=== PATIENT | male | born 1980 | race Caucasian/White ===

== ENCOUNTER 2017-11-10 16:22 | Outpatient (CLI) | payer BC ==
[2017-11-10 16:38] LABS: #Basophils 0.1 thou/uL (0.0-0.2); #Eosinphils 0.4 thou/uL (0.0-0.7); #Lymphocytes 2.4 thou/uL (1.20-3.40); #Monocytes 0.6 thou/uL (0.11-0.59); #Neutrophils 4.4 thou/uL (1.40-6.50); %Eosinophils 4.7 % (0.0-10.0); %Lymphocytes 30.6 % (21.0-51.0); %Monocytes 7.5 % (0.0-10.0); %Neutrophils 56.3 % (42.0-75.0); Hemoglobin 15.1 g/dL (14.0-18.0); Mean Corpuscular HGB CONC 33.8 g/dL (32.0-36.0); Mean Corpuscular Hemoglobin 29.6 pg (27.0-31.0); Mean Corpuscular Volume 87.5 fL (78.0-98.0); Mean Platelet Volume 6.4 fL (7.4-10.4); Platelet Count 349 thou/uL (130-400); RBC Distribution Width 12.9 % (11.5-14.5); Red Blood Cell (RBC) Count 5.09 mill/uL (4.70-6.10); White Blood Cell (WBC) Count 7.8 thou/uL (4.8-10.8)
[2017-11-10 16:53] LABS: Anion Gap 13 mmol/L (10-20); BUN (Urea Nitrogen) 24 mg/dL (8.9-20.6); Calc. Creatinine Clearance 0 mL/min (70-130); Calcium 9.2 mg/dL (7.8-10.44); Carbon Dioxide 28 mmol/L (22-29); Chloride 103 mmol/L (98-107); Estimated GFR-MDRD 90; Glucose 83 mg/dL (70-105); Potassium 4.6 mmol/L (3.5-5.1); Sodium 139 mmol/L (136-145)
== END 2017-11-10 16:23 | disposition home or self-care (01) ==
LOC: LABBT 16:22
PROVIDERS: ATTEND Surgery
DX: Z01.812 Encounter for preprocedural laboratory examination (principal); K43.9 Ventral hernia without obstruction or gangrene
CPT/HCPCS: 80048; 85025

== ENCOUNTER 2017-11-14 08:09 | Outpatient (CLI) | payer BC, OTHER ==
--- NOTE | 2017-11-14 10:21 | RAD ---
SINGLE CONTRAST ESOPHAGRAM: INDICATION: Concern for gastric narrowing related to gastric band placement. The patient had gastric band placed in [place], [place], approximately 10 years ago. The patient is having severe dysphagia and reflux. Fluoroscopic time 1.9 minutes. Total exposure 12.961 mGy*^cm2. FINDINGS: A single contrast barium esophagram was performed. The esophagus is moderately dilated. The gastric band is placed within the left upper quadrant of the abdomen and is situated in a 2 o'clock to 8 o'c lock position as expected. There is severe narrowing of the proximal stomach at the level of the gas tric band. No appreciable barium contrast was seen to transit through the level of obstruction durin g the examination. There were numerous tertiary contractions of the mid to distal esophagus. IMPRESSION: 1. Severe extrinsic narrowing of the stomach at the level of the gastric band without appreciable tr ansit of contrast across the band site. 2. Moderate achalasia of the esophagus. POS: LEONARDA
== END 2017-11-14 08:10 | disposition home or self-care (01) ==
LOC: RAD 08:09
PROVIDERS: ATTEND Surgery
DX: K43.9 Ventral hernia without obstruction or gangrene (principal); K31.1 Adult hypertrophic pyloric stenosis; K22.0 Achalasia of cardia
CPT/HCPCS: 74220

== ENCOUNTER 2017-11-15 08:45 | Day surgery (SDC) | payer BC ==
[2017-11-10 16:32] VITALS: BMI 27.0
[2017-11-15] MEDS ORDERED: cefOXitin 2 GM VIAL ONE (09:02)
[2017-11-15] MEDS ORDERED: Sodium Chloride 0.9% 100 ML ONE (09:03)
[2017-11-15] MEDS ORDERED: Lidocaine 2% Jelly 5 ML TUBE ONE (09:21)
[2017-11-15] MEDS ORDERED: Midazolam HCl 2 mg/2 ml Vial ONE (09:21)
[2017-11-15] MEDS ORDERED: Fentanyl 250 MCG/5 ML VIAL ONE (09:21)
[2017-11-15] MEDS ORDERED: Bupivacaine/Epinephrine 0.25% 30 ML VIAL ONE (09:32)
[2017-11-15] MEDS ORDERED: Fentanyl 100 MCG/2 ML VIAL ONE (11:44)
[2017-11-15] MEDS ORDERED: Promethazine HCl 25 MG/ML VIAL ONE (11:57)
[2017-11-15] MEDS ORDERED: PROPOFOL 200 MG/20 ML VIAL ONE (12:32)
[2017-11-15] MEDS ORDERED: Dexamethasone 20 MG/5 ML VIAL ONE (12:32)
[2017-11-15] MEDS ORDERED: Succinylcholine Chloride 20 MG/ML 10 ml SYRINGE FS ONE (12:32)
[2017-11-15] MEDS ORDERED: Lidocaine 1% PF 5 ML VIAL ONE (12:32)
[2017-11-15] MEDS ORDERED: Glycopyrrolate 0.2 MG/ML 5 ML SYRINGE ONE (12:32)
[2017-11-15] MEDS ORDERED: Ondansetron HCl/PF 4 MG/2 ML Vial ONE (12:32)
[2017-11-15] MEDS ORDERED: HYDROcodone/Acetaminophen 5/325 mg Tablet ONE (13:35)
--- NOTE | 2017-11-16 11:14 | OP ---
DATE OF PROCEDURE: 11/15/2017 PREOPERATIVE DIAGNOSES: 1. Acquired gastric outlet obstruction and stenosis at previous laparoscopic gastric band. 2. Severe esophagitis. 3. Ventral incisional hernia. POSTOPERATIVE DIAGNOSES: 1. Acquired gastric outlet obstruction and stenosis at previous laparoscopic gastric band. 2. Severe esophagitis. 3. Ventral incisional hernia. PROCEDURE: 1. Removal of laparoscopic gastric band and subcutaneous port. 2. Laparoscopic incisional ventral hernia repair with mesh [address] SURGEON: Wilber Almonte M.D. ANESTHESIA: General. ESTIMATED BLOOD LOSS: Minimal. COMPLICATIONS: None. SPECIMEN: None. FINDINGS: Postop EGD shows no ongoing obstruction or evidence of erosion of lap band. No hiatal her dax. TECHNIQUE: The patient was taken to the operating room, laid supine on the operating room supine on the table. After general anesthetic was obtained, OG was used to decompress the stomach. The abdome n is prepped and draped in a sterile fashion. Left subcostal 5 mm trocar placed in usual fashion, pn eumoperitoneum was obtained in the area of previous lap band port incision, a 12-mm trocar was placed , two other 5-mm ports were placed. The buckle of the lap band is dissected away from the liver. Th e buckle was opened and the lap band removed. The tubing for the lap band is cut. The band is remov ed through the 12 mm trocar site. The port itself would be removed via an open incision after laparo scopy was done. EGD scope was passed into the esophagus into the stomach to the antrum without obstr uction, no evidence of erosion or mucosal defects. There is esophagitis present, but no hiatal herni a. EGD scope was used to decompress the stomach, it was pulled and removed. A #1 V-Loc suture is us ed to close the fascial defect in the area of the hernia primarily. [address] mesh brought i nto the sterile field, tacked to the fascia circumferentially around this area of fascial closure. V icryl sutures and the GraNee needle was used to pass through the skin, muscle mesh and back up to hol d the mesh in place. These are placed in all 4 quadrants. All port sites are infiltrated using loca l anesthetic. All ports are removed under camera visualization. Pneumoperitoneum was let down. The 12-mm trocar site was closed using GraNee 0 Vicryl tie. The lap band port is removed. All incision s were irrigated and closed using 4-0 Monocryl and Dermabond. The patient en route to recovery in st able condition. All instrument counts, needle counts, lap counts were correct.
== END 2017-11-15 14:01 | disposition home or self-care (01) ==
LOC: SDC 08:45
PROVIDERS: ATTEND Surgery
PROC: 0DP64CZ Removal of Extraluminal Device from Stomach, Percutaneous Endoscopic Approach (ICD-10-PCS; principal; 2017-11-15)
PROC: 0WUF4JZ Supplement Abdominal Wall with Synthetic Substitute, Percutaneous Endoscopic Approach (ICD-10-PCS; principal; 2017-11-15)
DX: K43.2 Incisional hernia without obstruction or gangrene (principal); T85.598A Other mechanical complication of other gastrointestinal prosthetic devices, implants and grafts, initial encounter; K20.9 Esophagitis, unspecified; K31.1 Adult hypertrophic pyloric stenosis
CPT/HCPCS: 96374; 96375; C1781; J0694; J1100; J2001; J2250; J2405; J2550; J2704; J3010; J7050

== ENCOUNTER 2018-08-31 12:41 | Emergency (ER) | payer BC, OTHER ==
[2018-08-31] MEDS ORDERED: Ibuprofen 200 MG TAB ONE (13:37)
[2018-08-31] MEDS ORDERED: methylPREDNISolone Sod Succ/PF 125 MG/2 ML VIAL ONE (14:30)
== END 2018-08-31 14:39 | disposition home or self-care (01) ==
LOC: ERS 12:41
DX: J30.2 Other seasonal allergic rhinitis (principal); F17.210 Nicotine dependence, cigarettes, uncomplicated
CPT/HCPCS: 87804; 96372; J2930

== ENCOUNTER 2018-11-20 23:40 | Inpatient (IN) | payer OTHER ==
[2018-11-21 00:59] LABS: #Eosinphils 0.2 thou/uL (0.0-0.7); #Lymphocytes 1.7 thou/uL (1.20-3.40); #Monocytes 1.6 thou/uL (0.11-0.59); #Neutrophils 13.8 thou/uL (1.40-6.50); %Basophils 0.2 % (0.0-1.0); %Eosinophils 1.2 % (0.0-10.0); %Lymphocytes 9.6 % (21.0-51.0); %Monocytes 9.3 % (0.0-10.0); %Neutrophils 79.7 % (42.0-75.0); Hemoglobin 14.4 g/dL (14.0-18.0); Mean Corpuscular HGB CONC 34.2 g/dL (32.0-36.0); Mean Corpuscular Hemoglobin 28.8 pg (27.0-31.0); Mean Corpuscular Volume 84.4 fL (78.0-98.0); Mean Platelet Volume 7.7 fL (7.4-10.4); Platelet Count 308 thou/uL (130-400); RBC Distribution Width 13.1 % (11.5-14.5); White Blood Cell (WBC) Count 17.3 thou/uL (4.8-10.8)
[2018-11-21 01:26] LABS: ALT (SGPT) 737 U/L (8-55); AST (SGOT) 1858 U/L (5-34); Albumin 3.6 g/dL (3.5-5.0); Alkaline Phosphatase 82 U/L (40-150); Anion Gap 23 mmol/L (10-20); BUN (Urea Nitrogen) 82 mg/dL (8.9-20.6); Bilirubin, Total 0.8 mg/dL (0.2-1.2); Calc. Creatinine Clearance 0 mL/min (70-130); Calcium 7.8 mg/dL (7.8-10.44); Carbon Dioxide 17 mmol/L (22-29); Chloride 95 mmol/L (98-107); Estimated GFR-MDRD 9; Globulin 3.6 g/dL (2.4-3.5); Glucose 98 mg/dL (70-105); Potassium 4.4 mmol/L (3.5-5.1); Protein, Total 7.2 g/dL (6.0-8.3); Sodium 131 mmol/L (136-145)
[2018-11-21 01:55] LABS: Magnesium 2.8 mg/dL (1.6-2.6)
[2018-11-21 01:56] LABS: CK (CPK) Greater than 40000 U/L (30-200)
[2018-11-21 02:06] LABS: CKMB 563.5 ng/mL (0-6.6)
[2018-11-21] MEDS ORDERED: Sodium Chloride 0.9% 1,000 ML IV SCH ×3 (04:00→21:45)
--- NOTE | 2018-11-21 04:02 | PDOC.FPRHP ---
- History of Present Illness Chief Complaint: Dehydration, weakness History of Present Illness: Mr. Molina is a pleasant 38yo CM with h/o IV meth use who presents with 2 day history of muscle cramps, weakness, and lower back pain. He has used meth since age 20, with IV use for the past 3 years. He recently tried to quit and had been sober for 7 days prior to using IV meth 2 days ago. He then began to experience mild, subjective sxs of dehydration and full body weakness. Then, Tuesday morning, he worked outside for several hours in the morning and later began to experience increased full body muscle cramps and increased weakness prompting his presentation to the ED. He endorses decreased urine output, last urination some time Tuesday morning; decreased PO intake over past few days, lower back pain described as a bilateral pressure and weakness. Pain and cramping is much worse with movement and relieved with rest, rated 8/10. He also has taken multiple Motrin, 2 BC powders, and 8 baby aspirin over the past 2 days with minimal relief. He denies any CP, SOB, or abdominal pain. ED Course: In the ED, CPK was elevated to > 40,000 and AST/ALT 1858/737. Troponin 0.17. Cr 7.27. EKG was normal sinus rhythm. He was stable and given 2.5L NS bolus. He was then admitted for further management of TAYA secondary to rhabdo. - Allergies/Adverse Reactions Allergies Allergy/AdvReac Type Severity Reaction Status Date / Time No Known Allergies Allergy Unverified 11/10/17 16:32 - Home Medications Medication Instructions Recorded Confirmed Type Pantoprazole [Protonix] 40 mg PO DAILY 11/21/18 11/21/18 History - History PMHx: GERD PSHx: Gastric lap-band 10 yrs ago, removed in 2018 FHx: Father with unspecific "liver problems" and "hepatitis carrier." Mother with h/o of lower extremity edema. No known h/o ACS, CAD, DM, or HTN. Social: Meth use for past 18yrs, IV use in past 3 years. Last used 11/19 Smokes 1/3ppd for past 18yrs. No EtOH use. 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 No h/o STD's including HIV or Hep C. - Review of Systems General: reports: fatigue Eyes: denies: eye pain, vision changes ENT: denies: nasal congestion, rhinorrhea Respiratory: denies: cough, congestion, shortness of breath Cardiovascular: denies: chest pain, palpitation, edema Gastrointestinal: reports: diarrhea (isolated episode over past 2 days). denies : nausea, vomiting, abdominal pain Genitourinary: reports: other (decreased urine output). denies: dysuria Skin: reports: rashes (lower extremity rash) Musculoskeletal: reports: pain, tenderness. denies: swelling Neurological: reports: weakness. denies: numbness, syncope - Vital signs BP: 135/83 HR: 105 RR: 18 Tmax: 98.6 Pox: 99% on RA Wt: 127kg - Physical Exam Constitutional: NAD, awake, alert and oriented, well developed, other (Obese) HEENT: normocephalic and atraumatic, PERRLA, EOMI, grossly normal vision, grossly normal hearing Heart: RRR, normal S1/S2, no murmurs/rubs/gallops, pulses present Lungs: CTAB Abdomen: soft, non-tender, bowel sounds present Musculoskeletal: normal structure, normal tone, other (Muscles diffusely TTP, markedly on lower ext. Pain with Flexion of hip and plantar flexion of foot.) Neurological: no focal deficit Skin: other (Bilateral, maculopapular rash on feet.) Psychiatric: normal mood and affect FMR H&P: Results - Labs Result Diagrams: 11/21/18 00:51 11/21/18 00:51 Lab results: WBC 17.3 thou/uL (4.8-10.8) H 11/21/18 00:51 Hgb 14.4 g/dL (14.0-18.0) 11/21/18 00:51 Hct 42.2 % (42.0-52.0) 11/21/18 00:51 MCV 84.4 fL (78.0-98.0) 11/21/18 00:51 Plt Count 308 thou/uL (130-400) 11/21/18 00:51 Neutrophils % 79.7 % (42.0-75.0) H 11/21/18 00:51 Sodium 131 mmol/L (136-145) L 11/21/18 00:51 Potassium 4.4 mmol/L (3.5-5.1) 11/21/18 00:51 Chloride 95 mmol/L (98-107) L 11/21/18 00:51 Carbon Dioxide 17 mmol/L (22-29) L 11/21/18 00:51 BUN 82 mg/dL (8.9-20.6) H 11/21/18 00:51 Creatinine 7.27 mg/dL (0.7-1.3) H 11/21/18 00:51 Glucose 98 mg/dL (70-105) 11/21/18 00:51 Calcium 7.8 mg/dL (7.8-10.44) 11/21/18 00:51 Total Bilirubin 0.8 mg/dL (0.2-1.2) 11/21/18 00:51 AST 1858 U/L (5-34) H 11/21/18 00:51 ALT 737 U/L (8-55) H 11/21/18 00:51 Alkaline Phosphatase 82 U/L (40-150) 11/21/18 00:51 Creatine Kinase Greater than 16720 U/L (30-200) H 11/21/18 00:51 CK-MB (CK-2) 563.5 ng/mL (0-6.6) H* 11/21/18 00:51 B-Natriuretic Peptide 18.8 pg/mL (0-100) 11/21/18 00:51 Serum Total Protein 7.2 g/dL (6.0-8.3) 11/21/18 00:51 Albumin 3.6 g/dL (3.5-5.0) 11/21/18 00:51 Lipase 38 U/L (8-78) 11/21/18 00:51 - EKG Interpretation EKG: NSR. Rate 90. Normal axis. No ST/ T wave changes. Good R wave progression. FMR H&P: A/P - Problem List (1) TAYA (acute kidney injury) Current Visit: Yes Status: Acute Code(s): N17.9 - ACUTE KIDNEY FAILURE, UNSPECIFIED (2) Rhabdomyolysis Current Visit: Yes Status: Acute Code(s): M62.82 - RHABDOMYOLYSIS (3) Transaminitis Current Visit: Yes Status: Acute Code(s): R74.0 - NONSPEC ELEV OF LEVELS OF TRANSAMNS & LACTIC ACID DEHYDRGNSE (4) GERD (gastroesophageal reflux disease) Current Visit: Yes Status: Chronic Code(s): K21.9 - GASTRO-ESOPHAGEAL REFLUX DISEASE WITHOUT ESOPHAGITIS (5) Methamphetamine abuse Current Visit: Yes Status: Chronic Code(s): F15.10 - OTHER STIMULANT ABUSE, UNCOMPLICATED (6) Nicotine abuse Current Visit: Yes Status: Chronic Code(s): Z72.0 - TOBACCO USE (7) Obesity Current Visit: Yes Status: Chronic Code(s): E66.9 - OBESITY, UNSPECIFIED - Plan 38yo CM with h/o of methamphetamine abuse presents with TAYA secondary to rhabdomyolysis 1. TAYA secondary to Rhabdomyolysis - likely 2/2 decreased PO intake concurrent with methamphetamine abuse and increased exertion - Cr 7.27, CPK >40,000 - s/p 2.5L NS bolus in ED, will hydrate with NS @200ml/hr - Repeat CPK and CMP now and then q3h. Potassium currently 4.4, will monitor closely. 2. Transaminitis - AST/ALT 1858/737. Bili 0.8 - Likely 2/2 acute rhabdo - Recheck CMP now and q3h to trend. - If levels do not correct with hydration, will consider Hep C, HIV, RPR for further workup. 3. Elevated Troponin - Trop 0.170. EKG Sinus tachy without acute changes. - No CP, SOB, or acs sxs. Likely 2/2 rhabdo. 3. GERD - chronic and stable. Will continue home Protonix. 4. 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 Nicotine abuse - will provide nicotine patch - counsellors on cessation VTE: SCDs Diet: Regular Code status: Full Disposition/LOS: Pending clinical improvement as well as downtrend of CPK and return to baseline renal function. Anticipated hospitalization course >48hours. FMR H&P: Upper Level - Pertinent history 38 yo M w/hx of methamphetamine use presents to the ER with complaint of muscle cramps. He states that he had been off of methamphetamine for a period of time and relapsed starting 11/19. Additionally he had been working outside in the heat for the 48 hours prior to admission. He noticed that he had increasing thirst starting 11/20 and attempted to orally hydrate. On the night of 11/20 he had severe cramping and could not walk dt pain and decided to seek care in the ED. He has had no urine output since Tuesday that he can think of. Currently complains of muscle pain and cramping. Denies CP, SOB, palpitations. In ED he was found to have a CK >06736, AST 1858, ALT 737, and Cr of 7.27. He was bolused 3L NS and started on NS at 200mL/hr ROS General denies fever, chills HEENT complains of headache. Denies changes in vision CV denies palpitation or CP Resp denies cough or SOB GI denies n/v/d/g complains of decreased UOP MSK complains of muscle cramps See manager intern note for full ROS - Pertinent findings Significant labs as above. See manager intern note for all labs, vitals, and complete PE PE General A&O x4, no acute distress HEENT NCAT CV RRR, no murmur Resp CTA Abd non tender, no distension, normal BS Extremities all muscles TTP, normal ROM Neuro no focal deficits, normal sensation and strength - Plan Date/Time: 11/21/18 1445 IThony DO, have evaluated this patient and agree with findings/plan as outlined by manager intern resident. Pertinent changes/additions are listed here. This is a 38 yo M here TAYA secondary to rhabdomyolysis 1.Rhabdomyolysis -Continue IVF -Strict I/O -Monitor CMP. No current electrolyte abnormalities, however there are significant LFT elevation. -Rhabdo explains all lab abnormalities at this time, will consider further work up if labs do not begin to normalize with IVF. 2. Amphetamine abuse -likely source of rhabdo in combination with poor oral hydration and outside work. -UDS pending -counsellors on cessation. 3. TAYA -secondary to severe dehydration, continue to monitor and IVF as above -no indication for HD at this time. Will consult nephro if renal function does not improve on repeat labs 4. Elevated LFT -monitor as above. Most likely related to rhabdo
[2018-11-21 05:00] LABS: ALT (SGPT) 635 U/L (8-55); AST (SGOT) 1539 U/L (5-34); Albumin 3.2 g/dL (3.5-5.0); Alkaline Phosphatase 72 U/L (40-150); Anion Gap 27 mmol/L (10-20); BUN (Urea Nitrogen) 79 mg/dL (8.9-20.6); Bilirubin, Total 0.7 mg/dL (0.2-1.2); Calc. Creatinine Clearance 0 mL/min (70-130); Carbon Dioxide 11 mmol/L (22-29); Chloride 100 mmol/L (98-107); Estimated GFR-MDRD 9; Globulin 3.1 g/dL (2.4-3.5); Glucose 82 mg/dL (70-105); Protein, Total 6.3 g/dL (6.0-8.3); Sodium 133 mmol/L (136-145)
[2018-11-21 05:52] LABS: CK (CPK) Greater than 40000 U/L (30-200)
[2018-11-21 08:19] LABS: ALT (SGPT) 597 U/L (8-55); AST (SGOT) 1359 U/L (5-34); Albumin 3.1 g/dL (3.5-5.0); Alkaline Phosphatase 75 U/L (40-150); Anion Gap 21 mmol/L (10-20); BUN (Urea Nitrogen) 82 mg/dL (8.9-20.6); Bilirubin, Total 0.6 mg/dL (0.2-1.2); Calc. Creatinine Clearance 29 mL/min (70-130); Calcium 6.6 mg/dL (7.8-10.44); Carbon Dioxide 16 mmol/L (22-29); Chloride 99 mmol/L (98-107); Estimated GFR-MDRD 8; Glucose 85 mg/dL (70-105); Potassium 4.2 mmol/L (3.5-5.1); Protein, Total 6.1 g/dL (6.0-8.3); Sodium 132 mmol/L (136-145)
[2018-11-21 08:26] LABS: Actual Bicarbonate (HCO3a) 16.2 mEq/L (22-28); Base Excess (BEa) -8.3 mEq/L (-2.0 to +3.0); CO2 Tension 30.8 mmHg (35.0-45.0); Calcium, Ionized 0.88 mmol/L (1.12-1.30); Hemoglobin (Hb) 13.5 g/dL (14.0-18.0); O2 Tension (PaO2) 104.7 mmHg (80.0-100.0); Potassium - ABG Lab 4.26 mmol/L (3.70-5.30); pH, Arterial 7.34 (7.35-7.45)
[2018-11-21 08:28] LABS: Puncture Site RRA
[2018-11-21] MEDS: Nicotine 14 MG PATCH TD SCH ×2 (08:40→09:55)
[2018-11-21 09:13] LABS: CK (CPK) Greater than 40000 U/L (30-200)
[2018-11-21] MEDS ORDERED: Lidocaine 1% PF 5 ML VIAL ONE (10:15)
[2018-11-21] MEDS ORDERED: PROPOFOL 200 MG/20 ML VIAL ONE (10:15)
[2018-11-21] MEDS ORDERED: Ondansetron PF 4 MG/2 ML Vial ONE (10:15)
[2018-11-21] MEDS ORDERED: Dexamethasone 20 MG/5 ML VIAL ONE (10:15)
[2018-11-21 10:28] LABS: HBSAg Index 0.27 S/CO (0-0.99); Hep B Core Total Ab Non-Reactive (NonReactive); Hep B Core Total Index 0.12 S/CO (0-0.79); Hep B Surf AB Non-Reactive (NonReactive); Hep B Surf Ag Non-Reactive S/CO (NonReactive); Hep C IgG Ab Non-Reactive (NonReactive)
[2018-11-21 10:29] LABS: Bilirubin Negative (Negative); Blood, Urine Large (Negative); Clarity CLOUDY (Clear); Glucose, Urine (Dipstick) 250 mg/dL (Negative); Leukocyte Negative (Negative); Nitrite Negative (Negative); Protein, Urine (Dipstick) 300 mg/dL (Neg-Trace); Urobilinogen 0.2 mg/dL (0.2-1.0)
[2018-11-21 10:38] LABS: Amphetamine Detected (NotDetected); Barbiturates Screen Not Detected (NotDetected); Benzodiazepine Screen Not Detected (NotDetected); Cocaine Metabolite Screen Not Detected (NotDetected); Medtox Control Line Valid? VALID (VALID); Medtox Reader # READER 1; Methadone Not Detected (NotDetected); Methamphetamine Detected (NotDetected); Opiate Screen Detected (NotDetected); Oxycodone Screen Not Detected (NotDetected); Phencyclidine (PCP) Not Detected (NotDetected); THC/Cannabinoid Screen Not Detected (NotDetected); Tricyclic Screen Not Detected (NotDetected)
[2018-11-21 10:47] LABS: Bacteria/HPF None Seen HPF (None Seen); Hyaline Casts/LPF NONE SEEN LPF (0-3 Hyaline); RBC/HPF 0-3 HPF (0-3); Squamous Epithelial 0-3 HPF (0-3); WBC/HPF 0-3 HPF (0-3)
[2018-11-21] MEDS ORDERED: Heparin 10,000 UNITS/ 10 ML VIAL ONE ×2 (11:11)
--- NOTE | 2018-11-21 11:25 | CON ---
DATE OF CONSULTATION: REASON FOR CONSULTATION: Anuria and metabolic acidosis. HISTORY OF PRESENT ILLNESS: This is a very pleasant 38-year-old gentleman, who presented to the hospital early this morning with a bicarbonate of 11, for dehydration and weakness. The patient had a creatinine of 7.6. The patient has not been aware of any kidney disease. Last creatinine in October of 2017 was normal. The patient denies any nausea, vomiting, or chest pain at this time. Did make some urine today. His CPK was more than 40,000. PAST MEDICAL HISTORY: Significant of GERD, history of Lap-Band surgery. SOCIAL HISTORY: No alcohol. History of methamphetamine use and smoking and IV drug use. FAMILY HISTORY: Negative for ESRD. ALLERGIES: REVIEWED. HOME MEDICATIONS: List reviewed. REVIEW OF SYSTEMS: A 15-point review of system was performed, negative except for positives noted above. GENERAL: HEAD: NECK: No swelling or lumps. NOSE: No epistaxis or discharge. EYES: No diplopia or pain. 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 NEUROPSYCHIATIC SYSTEMS: No suicidal ideation. No ideation. SKIN: Denies any rash or ulcer. CONSTITUTIONAL: No fever or chills. PHYSICAL EXAMINATION: GENERAL: The patient is awake and alert. VITAL SIGN: Afebrile. Pulse 75, breathing 16, blood pressure 117/66. GENERAL APPEARANCE AND MENTAL STATUS: Fair. HEAD/NECK: Normocephalic. Atraumatic. EYES: EOMI. No deformity. EARS: Clear. No ulcers. NOSE: Intact. No lesions. MOUTH: Clear. No discharge. THROAT: Clear. No exudate. LUNGS: Clear. No crackles. CARDIAC: S1, S2. No rub. ABDOMEN: Benign. Bowel sounds positive. GENITALIA/RECTUM: Ontiveros absent. BACK/EXTREMITIES: Edema 0+. NEUROLOGICAL: Alert and motor intact. SKIN: LYMPHATICS: LABORATORY DATA: Reviewed. ASSESSMENT AND PLAN: 1. Acute kidney injury with chronic kidney disease. Plan dialysis. 2. Proteinuria. We will measure. 3. Metabolic acidosis. Plan dialysis. 4. Narcotic drug use. Overall prognosis is poor. The patient was consented for dialysis. Job ID: [id number]
[2018-11-21] MEDS ORDERED: CEFAZOLIN 2 GM in Premix Bag 1 BAG IVPB SCH (12:45)
--- NOTE | 2018-11-21 13:08 | HP ---
HISTORY OF PRESENT ILLNESS: Tommy Molina is a 38-year-old male patient who has a meth addiction relapse, presents with rhabdomyolysis and acute renal failure. I placed a temporary dialysis catheter in his right groin Trialysis. It seemed to go in well; however, will not work well during dialysis. I have been called by dialysis stating they tried everything to get it to work. Plan at this time is to place a cuffed tunneled dialysis catheter. His creatinine is 7, GFR 8. There are no previous labs to compare to. Drug screen is positive for amphetamines, methamphetamines. ALLERGIES: NONE. MEDICATIONS: Protonix. This patient had been meth free for 7 days, but had a relapse two days ago. SOCIAL HISTORY: Tobacco, 1/3 pack per day. Alcohol, none. 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 Meth use for the past 18 years. IV in the last 3 years. PHYSICAL EXAMINATION: VITAL SIGNS: 6 feet 1, 340 pounds, 44 BMI, 98.2, 82, 142/79. HEAD, EARS, EYES, NOSE AND THROAT: Unremarkable. LUNGS: Clear to auscultation. CARDIAC: Regular rate and rhythm. ABDOMEN: Soft, obese. EXTREMITIES: Unremarkable. ASSESSMENT/PLAN: Rhabdomyolysis, acute renal failure. PLAN: Placement of cuffed tunneled dialysis catheter due to his groin catheter not functioning adequately for dialysis. He understands risks and benefits and consents. Job ID: [id number]
--- NOTE | 2018-11-21 14:10 | OP ---
DATE OF PROCEDURE: 11/21/2018 PREOPERATIVE DIAGNOSES: Rhabdomyolysis, recurrent methamphetamine use, history of addiction, acute renal failure. POSTOPERATIVE DIAGNOSES: Rhabdomyolysis, recurrent methamphetamine use, history of addiction, acute renal failure. PROCEDURE PERFORMED: Right groin Trialysis catheter. ANESTHESIA: 1% Xylocaine. DESCRIPTION OF PROCEDURE: With the patient's at bedside, right groin was prepared with ChloraPrep and draped in routine fashion. Hair clip had been requested, but not delivered. Local anesthetic with 1% Xylocaine was infiltrated in the skin and subcutaneous tissue about the operative site and trocar catheter was cannulated in the femoral vein, J-wire threaded, trocar catheter removed. Skin site enlarged sharply. Medium sized dilator was placed over the J-wire into the femoral vein and removed and distal port of the Trialysis catheter placed over the J-wire into the femoral vein and J-wire removed, catheter secured with 2 interrupted sutures of 3-0 nylon. Sterile dressing applied. Each port aspirated with blood, flushed with heparinized saline solution. The patient tolerated the procedure well. Job ID: [id number]
[2018-11-21] MEDS: Heparin 5,000 UNITS/ML VIAL SC SCH ×2 (15:36→20:11)
[2018-11-21] MEDS ORDERED: Bupivacaine HCl 0.5%/Epinephrine 1:200,000/PF 30 ml Vial ONE (16:24)
[2018-11-21] MEDS ORDERED: Heparin 10,000 UNITS/1 ML VIAL ONE (16:24)
[2018-11-21] MEDS ORDERED: Lidocaine 2% PF 5 ML VIAL ONE (16:24)
[2018-11-21] MEDS ORDERED: Fentanyl 100 MCG/2 ML VIAL ONE (16:31)
[2018-11-21] MEDS ORDERED: Promethazine HCl 25 MG/ML VIAL SLOW IVP PRN (17:45)
[2018-11-21] MEDS ORDERED: Promethazine HCl 25 MG/ML VIAL IM PRN (17:45)
[2018-11-21] MEDS ORDERED: Ondansetron HCl/PF 4 MG/2 ML Vial IVP PRN (17:45)
--- NOTE | 2018-11-21 18:01 | RAD ---
EXAM: Single view of the chest HISTORY: Central line placement COMPARISON: None FINDINGS: Single view of the chest shows a normal sized cardiomediastinal silhouette. A right IJ lenka lysis catheter seen with its tip at the atriocaval junction. No pneumothorax is seen. There is no evidence of consolidation, mass, or pleural effusion. The bones are unremarkable. IMPRESSION: Status post dialysis catheter placement without evidence of complication.
[2018-11-21 19:17] LABS: ALT (SGPT) 552 U/L (8-55); AST (SGOT) 1057 U/L (5-34); Albumin 3.1 g/dL (3.5-5.0); Alkaline Phosphatase 75 U/L (40-150); Anion Gap 19 mmol/L (10-20); BUN (Urea Nitrogen) 77 mg/dL (8.9-20.6); Bilirubin, Total 0.6 mg/dL (0.2-1.2); Calc. Creatinine Clearance 28 mL/min (70-130); Calcium 6.5 mg/dL (7.8-10.44); Carbon Dioxide 19 mmol/L (22-29); Chloride 100 mmol/L (98-107); Estimated GFR-MDRD 8; Glucose 87 mg/dL (70-105); Potassium 4.9 mmol/L (3.5-5.1); Protein, Total 6.1 g/dL (6.0-8.3); Sodium 133 mmol/L (136-145)
[2018-11-21 19:50] LABS: CK (CPK) Greater than 40000 U/L (30-200)
--- NOTE | 2018-11-22 00:50 | OP ---
DATE OF PROCEDURE: 11/21/2018 PREOPERATIVE DIAGNOSES: Acute renal failure. Methamphetamine intravenous use, nonfunctioning right groin Trialysis catheter, rhabdomyolysis. POSTOPERATIVE DIAGNOSES: Acute renal failure. Methamphetamine intravenous use, nonfunctioning right groin Trialysis catheter, rhabdomyolysis. PROCEDURE PERFORMED: Right IJ cuffed tunneled hemodialysis catheter, ultrasound fluoroscopy used. ANESTHESIA: General LMA, local 0.5% Marcaine with epinephrine 30 mL mixed with 2% Xylocaine 10 mL. DESCRIPTION OF PROCEDURE: The patient was taken to the operating room where under general LMA anesthesia, neck and chest clipped of hair, prepared with ChloraPrep and draped in routine fashion. Trocar cannulated the right internal jugular vein on ultrasound visualization and J-wire threaded, trocar catheter removed. Skin was incised and enlarged sharply. Stab incision was made over the right chest. Using the tunneling device, pre-curved [employer] cuffed-tunneled hemodialysis catheter tunneled between 2 incisions, placed the fabric cuff beneath the skin exit site and catheter was secured with 2 interrupted sutures of 3-0 nylon. Sterile dressing applied. Small and medium sized dilators placed over the J-wire into the internal jugular vein and removed. Dilator and Peel-Away sheath were placed over the J-wire into the superior vena cava. Dilator and J-wire were removed. Catheter was placed with the Peel-Away sheath. Peel-Away sheath was removed. Platysma was approximated with 4-0 Monocryl, skin with subdermal 4-0 Monocryl and [place] glue applied. Each port aspirated blood and flushed with saline solution and heparinized saline solution with 1000 units heparin per mL indicating volume of the port. Job ID: [id number]
[2018-11-22 06:12] LABS: ALT (SGPT) 511 U/L (8-55); AST (SGOT) 835 U/L (5-34); Albumin 3.3 g/dL (3.5-5.0); Alkaline Phosphatase 76 U/L (40-150); Anion Gap 18 mmol/L (10-20); BUN (Urea Nitrogen) 79 mg/dL (8.9-20.6); Bilirubin, Total 0.4 mg/dL (0.2-1.2); Calc. Creatinine Clearance 28 mL/min (70-130); Calcium 7.1 mg/dL (7.8-10.44); Carbon Dioxide 19 mmol/L (22-29); Chloride 102 mmol/L (98-107); Estimated GFR-MDRD 8; Globulin 3.4 g/dL (2.4-3.5); Glucose 101 mg/dL (70-105); Potassium 5.2 mmol/L (3.5-5.1); Protein, Total 6.7 g/dL (6.0-8.3); Sodium 134 mmol/L (136-145)
[2018-11-22 06:40] LABS: CK (CPK) Greater than 40000 U/L (30-200)
--- NOTE | 2018-11-22 06:53 | PDOC.FM ---
- Subjective Subjective: Patient was dialyzed overnight but renal function continues to decline. Otherwise, no acute events. Reports improvement in his muscle cramping this AM and did urinate overnight. - Objective MAR Reviewed: Yes Vital Signs & Weight: Vital Signs (12 hours) Temp Pulse Resp BP Pulse Ox 11/22/18 04:00 97.9 F 84 20 134/71 97 11/21/18 23:20 95 22 H 143/77 H 97 11/21/18 20:06 97.8 F 86 19 130/76 98 Weight Weight 154.1 kg I&O: 11/20/18 11/21/18 11/22/18 06:59 06:59 06:59 Intake Total 2340 Output Total 1575 Balance 765 Result Diagrams: 11/21/18 00:51 11/22/18 05:08 Phys Exam - Physical Examination Constitutional: NAD Neck: supple, full ROM Respiratory: no wheezing, no rales, no rhonchi, clear to auscultation bilateral Cardiovascular: RRR, no significant murmur Gastrointestinal: soft, non-tender, positive bowel sounds Musculoskeletal: no edema, pulses present Neurological: non-focal, moves all 4 limbs Psychiatric: normal affect, A&O x 3 Skin: no rash, normal turgor Dx/Plan (1) Acute renal failure Status: Acute (2) Rhabdomyolysis Code(s): M62.82 - RHABDOMYOLYSIS Status: Acute (3) Transaminitis Code(s): R74.0 - NONSPEC ELEV OF LEVELS OF TRANSAMNS & LACTIC ACID DEHYDRGNSE Status: Acute (4) GERD (gastroesophageal reflux disease) Code(s): K21.9 - GASTRO-ESOPHAGEAL REFLUX DISEASE WITHOUT ESOPHAGITIS Status: Chronic (5) Methamphetamine abuse Code(s): F15.10 - OTHER STIMULANT ABUSE, UNCOMPLICATED Status: Chronic (6) Nicotine abuse Code(s): Z72.0 - TOBACCO USE Status: Chronic (7) Obesity Code(s): E66.9 - OBESITY, UNSPECIFIED Status: Chronic - Plan Plan: 38YOM with a h/o of methamphetamine abuse who presented in ARF 2/2 rhabdomyolysis from methamphetamine use. ARF 2/2 Rhabdomyolysis - Likely 2/2 decreased PO intake with methamphetamine abuse. - s/p urgent HD yesterday and ~4-5L of IVFs but Cr 7.8 & CPK >40,000 this AM. However, did have ~1L UO in the last 24 hours. - Will continue hydration with NS @ 250ml/hr but anticipate patient will need HD again today. - Will continue to trend CPK and CMP QD. Hyperkalemia - K up to 5.2 this AM. Patient is asymptomatic but peaked T waves noted on tele strip this AM. Stat EKG ordered and will give PPx calcium gluconate and kayexalate as well as Duonebs prior to dialysis. Transaminitis - AST/ALT continue to downtrend. - Likely 2/2 rhabdo - Will continue to trend with QD CMPs. Elevated Troponin - Initial trop 0.170 but downtrended to 0.125. Likely 2/2 rhabdo. GERD - Chronic and stable. Will continue home Protonix. Methamphetamine abuse - UDS + for meth and opiates. - Will herb counselor on cessation. Nicotine abuse - Patient refused nicotine patch. - Will herb counselor on cessation. VTE: heparin Diet: Renal high protein IVFs: NS @ 250mL/hr Abx: none Code status: Full Addendum - Attending - Attending Attestation Date/Time: 11/22/18 1241 I personally evaluated the patient and discussed the management with Dr. Berkowitz. I agree with the History, Examination, Assessment and Plan documented above with any addition or exceptions noted below. Worsening creatinine in the setting of acute renal failure 2/2 rhabdomyolysis 2/ 2 meth use. Continue fluids and dialysis. 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 Trend CK and creatinine
[2018-11-22] MEDS ORDERED: Calcium Gluc 4.6 MEQ/10 ML (100 MG/ML) SLOW IVP SCH (08:17)
[2018-11-22] MEDS ORDERED: Albuterol Sulfate 1.25 MG/3 ML NEB NEB SCH (08:21)
[2018-11-22] MEDS: Heparin 5,000 UNITS/ML VIAL SC SCH ×3 (10:14→20:32)
[2018-11-22] MEDS: Sodium Chloride 0.9% 1,000 ML IV SCH ×4 (10:15→20:31)
[2018-11-22] MEDS ORDERED: Heparin 10,000 UNITS/ 10 ML VIAL ONE (11:11)
--- NOTE | 2018-11-22 11:30 | PRG ---
DATE OF SERVICE: 11/22/2018 SUBJECTIVE: This is a 38-year-old gentleman, being seen for end-stage renal disease. The patient denied nausea, vomiting, or chest pain. OBJECTIVE: CONSTITUTIONAL: The patient is awake and alert. VITAL SIGNS: Afebrile. Pulse 80, breathing 16, blood pressure 134/83. GENERAL APPEARANCE AND MENTAL STATUS: Fair. HEAD/NECK: Normocephalic. Atraumatic. EYES: EOMI. No deformity. EARS: Clear. No ulcers. NOSE: Intact. No lesions. MOUTH: Clear. No discharge. THROAT: Clear. No exudate. LUNGS: Clear. No crackles. CARDIAC: S1, S2. No rub. ABDOMEN: Benign. Bowel sounds positive. GENITALIA/RECTUM: Ontiveros absent. BACK/EXTREMITIES: Edema 0+. NEUROLOGICAL: Alert and motor intact. SKIN: LYMPHATICS: LABORATORY DATA: Reviewed. ASSESSMENT AND PLAN: 1. Stage 6 chronic kidney disease, plan dialysis. 2. Hyperkalemia, plan dialysis. 3. Anemia, stable. 4. Medication based on GFR, appropriate. Job ID: [id number]
[2018-11-22 16:19] LABS: ALT (SGPT) 407 U/L (8-55); AST (SGOT) 693 U/L (5-34); Albumin 3.3 g/dL (3.5-5.0); Alkaline Phosphatase 70 U/L (40-150); Anion Gap 16 mmol/L (10-20); BUN (Urea Nitrogen) 62 mg/dL (8.9-20.6); Bilirubin, Total 0.3 mg/dL (0.2-1.2); Calc. Creatinine Clearance 35 mL/min (70-130); Calcium 7.5 mg/dL (7.8-10.44); Carbon Dioxide 24 mmol/L (22-29); Chloride 101 mmol/L (98-107); Estimated GFR-MDRD 10; Globulin 3.2 g/dL (2.4-3.5); Glucose 103 mg/dL (70-105); Potassium 3.9 mmol/L (3.5-5.1); Protein, Total 6.5 g/dL (6.0-8.3); Sodium 137 mmol/L (136-145)
[2018-11-22 16:45] LABS: CK (CPK) 37719 U/L (30-200)
--- NOTE | 2018-11-22 23:58 | ULT ---
US Renal Bilateral STANDARD: 11/22/2018 10:09 AM CLINICAL HISTORY: Acute kidney injury and right flank pain. STUDY: Renal ultrasound COMPARISON: None. FINDINGS: Right kidney: Echogenicity: Normal. Masses/cysts: None. Hydronephrosis: None. Calcifications: None. Length: 12.8 cm Left kidney: Echogenicity: Normal. Masses/cysts: None. Hydronephrosis: None. Calcifications: None. Length: 13.2 cm Limited visualization of the urinary bladder is unremarkable. The left ureteral jet was visualized. T he right ureteral jet was not definitely seen. IMPRESSION: Unremarkable renal ultrasound
[2018-11-23] MEDS ORDERED: Ondansetron ODT 4 MG TAB PO PRN (02:14)
[2018-11-23] MEDS ORDERED: Acetaminophen 325 MG TAB PO SCH (02:30)
[2018-11-23] MEDS: Sodium Chloride 0.9% 1,000 ML IV SCH ×8 (02:34→20:31)
[2018-11-23 06:37] LABS: ALT (SGPT) 275 U/L (8-55); AST (SGOT) 519 U/L (5-34); Albumin 3.1 g/dL (3.5-5.0); Alkaline Phosphatase 66 U/L (40-150); Anion Gap 17 mmol/L (10-20); BUN (Urea Nitrogen) 61 mg/dL (8.9-20.6); Bilirubin, Total 0.5 mg/dL (0.2-1.2); Calc. Creatinine Clearance 31 mL/min (70-130); Calcium 7.3 mg/dL (7.8-10.44); Carbon Dioxide 20 mmol/L (22-29); Chloride 103 mmol/L (98-107); Estimated GFR-MDRD 9; Globulin 3.2 g/dL (2.4-3.5); Glucose 80 mg/dL (70-105); Potassium 4.3 mmol/L (3.5-5.1); Protein, Total 6.3 g/dL (6.0-8.3); Sodium 136 mmol/L (136-145)
--- NOTE | 2018-11-23 06:47 | PDOC.FM ---
- Subjective Subjective: NAEO. Patient reports continued improvement in his cramping and denies any chest pain, SOB, or LE edema. - Objective MAR Reviewed: Yes Vital Signs & Weight: Vital Signs (12 hours) Temp Pulse Resp BP Pulse Ox 11/23/18 04:00 98.2 F 80 20 151/75 H 95 11/23/18 00:00 99.2 F 11/22/18 20:30 99.0 F 96 21 H 138/71 97 Weight Weight 154.1 kg I&O: 11/21/18 11/22/18 11/23/18 06:59 06:59 06:59 Intake Total 2340 6030 Output Total 1575 2950 Balance 765 3080 Result Diagrams: 11/21/18 00:51 11/23/18 05:15 Phys Exam - Physical Examination Constitutional: NAD HEENT: moist MMs Neck: supple, full ROM Respiratory: no wheezing, no rales, no rhonchi, clear to auscultation bilateral Cardiovascular: RRR, no significant murmur Musculoskeletal: no edema, pulses present Neurological: non-focal, moves all 4 limbs Psychiatric: normal affect, A&O x 3 Skin: no rash, normal turgor, cap refill <2 seconds Dx/Plan (1) Acute renal failure Status: Acute (2) Rhabdomyolysis Code(s): M62.82 - RHABDOMYOLYSIS Status: Acute (3) Transaminitis Code(s): R74.0 - NONSPEC ELEV OF LEVELS OF TRANSAMNS & LACTIC ACID DEHYDRGNSE Status: Acute (4) GERD (gastroesophageal reflux disease) Code(s): K21.9 - GASTRO-ESOPHAGEAL REFLUX DISEASE WITHOUT ESOPHAGITIS Status: Chronic (5) Methamphetamine abuse Code(s): F15.10 - OTHER STIMULANT ABUSE, UNCOMPLICATED Status: Chronic (6) Nicotine abuse Code(s): Z72.0 - TOBACCO USE Status: Chronic (7) Obesity Code(s): E66.9 - OBESITY, UNSPECIFIED Status: Chronic - Plan Plan: 38YOM with a h/o of methamphetamine abuse who presented in ARF 2/2 rhabdomyolysis from methamphetamine use & poor PO intake. ARF 2/2 Rhabdomyolysis - Patient is now s/p HD x2 and aggressive IVFs over last 24 hours (~6L of NS) but Cr slightly up from yesterday afternoon at 7/07 this AM. CPK down to 23k this AM. However, continue to make urine with a UO if 1350 in the last 24 hours. - Will consider slightly decreasing his fluid rate to avoid volume overload as dialysis is still indicated. - Will continue to trend CPK and CMP QD. Hyperkalemia, resolved - K down to 4.3 this AM. Will continue to monitor. Transaminitis - AST/ALT continue to downtrend. - Likely 2/2 rhabdo - Will continue to trend with QD CMPs. Elevated Troponin - Initial trop 0.170 but downtrended to 0.125. Likely 2/2 rhabdo. GERD - Chronic and stable. Will continue home Protonix. Methamphetamine abuse - UDS + for meth and opiates. - Will reimbursement counselor on cessation. Nicotine abuse - Patient refused nicotine patch. - Will reimbursement counselor on cessation. VTE: heparin Diet: Renal high protein IVFs: NS @ 250mL/hr Abx: none Code status: Full Addendum - Attending - Attending Attestation Date/Time: 11/23/18 2201 I personally evaluated the patient and discussed the management with Dr. Berkowitz. I agree with the History, Examination, Assessment and Plan documented above with any addition or exceptions noted below. The patient is feeling better. His creatinine has increased. Pt will continue IV fluids for ARF. He is making urine. Dialysis per Dr. Fleming. Can transfer to medical bed.
[2018-11-23 07:01] LABS: CK (CPK) 23541 U/L (30-200)
[2018-11-23] MEDS ORDERED: Melatonin 3 MG TAB PO PRN (07:20)
[2018-11-23] MEDS ORDERED: hydrOXYzine 25 MG TAB PO PRN (07:22)
[2018-11-23] MEDS ORDERED: Zolpidem Tartrate 5 MG TAB PO PRN (07:25)
[2018-11-23] MEDS: Heparin 5,000 UNITS/ML VIAL SC SCH ×3 (10:57→20:32)
--- NOTE | 2018-11-23 11:58 | PRG ---
DATE OF SERVICE: 11/23/2018 SUBJECTIVE: A 38-year-old gentleman, being seen for end-stage renal disease. The patient denied nausea, vomiting, or chest pain. OBJECTIVE: CONSTITUTIONAL: The patient is awake and alert. VITAL SIGNS: Afebrile, pulse 80, breathing 16, and blood pressure 151/75. GENERAL APPEARANCE AND MENTAL STATUS: Fair. HEAD/NECK: Normocephalic. Atraumatic. EYES: EOMI. No deformity. EARS: Clear. No ulcers. NOSE: Intact. No lesions. MOUTH: Clear. No discharge. THROAT: Clear. No exudate. LUNGS: Clear. No crackles. CARDIAC: S1, S2. No rub. ABDOMEN: Benign. Bowel sounds positive. GENITALIA/RECTUM: Ontiveros absent. BACK/EXTREMITIES: Edema 0+. NEUROLOGICAL: Alert and motor intact. SKIN: LYMPHATICS: LABORATORY DATA: Labs show creatinine is 7.07. ASSESSMENT: 1. Stage 5 chronic kidney disease, nonoliguric. The patient is making urine. We will hold off on dialysis. 2. Hypertension, stable. 3. Anemia, stable. 4. Medication based on GFR appropriate. Job ID: [id number]
[2018-11-23] MEDS ORDERED: Gabapentin 100 MG CAP PO SCH (16:45)
[2018-11-23] MEDS ORDERED: Simethicone Chewable 80 MG TAB PO PRN (17:43)
[2018-11-24] MEDS: Sodium Chloride 0.9% 1,000 ML IV SCH (05:56)
[2018-11-24 05:59] LABS: #Basophils 0.1 thou/uL (0.0-0.2); #Eosinphils 0.2 thou/uL (0.0-0.7); #Lymphocytes 1.5 thou/uL (1.20-3.40); #Monocytes 1.1 thou/uL (0.11-0.59); #Neutrophils 5.1 thou/uL (1.40-6.50); %Basophils 0.7 % (0.0-1.0); %Eosinophils 2.9 % (0.0-10.0); %Lymphocytes 18.8 % (21.0-51.0); %Monocytes 13.1 % (0.0-10.0); %Neutrophils 64.5 % (42.0-75.0); Mean Corpuscular HGB CONC 33.4 g/dL (32.0-36.0); Mean Corpuscular Hemoglobin 28.7 pg (27.0-31.0); Mean Platelet Volume 7.7 fL (7.4-10.4); Platelet Count 242 thou/uL (130-400); RBC Distribution Width 13.2 % (11.5-14.5); Red Blood Cell (RBC) Count 4.17 mill/uL (4.70-6.10)
[2018-11-24 06:23] LABS: ALT (SGPT) 165 U/L (8-55); AST (SGOT) 299 U/L (5-34); Alkaline Phosphatase 56 U/L (40-150); Anion Gap 16 mmol/L (10-20); BUN (Urea Nitrogen) 72 mg/dL (8.9-20.6); Bilirubin, Total 0.5 mg/dL (0.2-1.2); Calc. Creatinine Clearance 31 mL/min (70-130); Carbon Dioxide 22 mmol/L (22-29); Chloride 106 mmol/L (98-107); Estimated GFR-MDRD 9; Glucose 82 mg/dL (70-105); Potassium 4.8 mmol/L (3.5-5.1); Sodium 139 mmol/L (136-145)
[2018-11-24] MEDS ORDERED: Melatonin 3 MG TAB PO PRN (06:39)
--- NOTE | 2018-11-24 06:43 | PDOC.FM ---
- Subjective Subjective: NAEO. Patient reports that his pain and cramping is better so he is much more mobile. Denies any chest pain, SOB, or LE edema. Reports that he continue to urinate frequently. - Objective MAR Reviewed: Yes Vital Signs & Weight: Vital Signs (12 hours) Temp Pulse Resp BP BP Pulse Ox 11/24/18 03:56 98.0 F 84 20 112/71 96 11/24/18 00:00 98.6 F 89 20 141/86 H 97 11/23/18 20:30 97.5 F L 100 20 129/80 97 11/23/18 20:00 97 Weight Weight 154.1 kg I&O: 11/22/18 11/23/18 11/24/18 06:59 06:59 06:59 Intake Total 2340 6030 4168 Output Total 1575 2950 1650 Balance 765 7770 0307 Result Diagrams: 11/24/18 05:09 11/24/18 05:09 Phys Exam - Physical Examination Constitutional: NAD HEENT: moist MMs Neck: supple, full ROM Respiratory: no wheezing, no rales, no rhonchi, clear to auscultation bilateral Cardiovascular: RRR, no significant murmur Musculoskeletal: no edema, pulses present Neurological: non-focal, moves all 4 limbs Psychiatric: normal affect, A&O x 3 Skin: no rash, normal turgor, cap refill <2 seconds Dx/Plan (1) Acute renal failure Status: Acute (2) Rhabdomyolysis Code(s): M62.82 - RHABDOMYOLYSIS Status: Acute (3) Transaminitis Code(s): R74.0 - NONSPEC ELEV OF LEVELS OF TRANSAMNS & LACTIC ACID DEHYDRGNSE Status: Acute (4) GERD (gastroesophageal reflux disease) Code(s): K21.9 - GASTRO-ESOPHAGEAL REFLUX DISEASE WITHOUT ESOPHAGITIS Status: Chronic (5) Methamphetamine abuse Code(s): F15.10 - OTHER STIMULANT ABUSE, UNCOMPLICATED Status: Chronic (6) Nicotine abuse Code(s): Z72.0 - TOBACCO USE Status: Chronic (7) Obesity Code(s): E66.9 - OBESITY, UNSPECIFIED Status: Chronic - Plan Plan: 38YOM with a h/o of methamphetamine abuse who presented in ARF 2/2 rhabdomyolysis from methamphetamine use & poor PO intake. ARF 2/2 Rhabdomyolysis - Patient is now s/p HD x3 and continued aggressive IVFs over last 24 hours but Cr once again slightly up from yesterday afternoon at 7.19 this AM. CPK down to 9k this AM. However, continues to make urine with a UO of 1650 in the last 24 hours. - Will encourage aggressive PO fluids & will continue to trend CPK and CMP QD. Transaminitis - AST/ALT continue to downtrend. - Likely 2/2 rhabdo - Will continue to trend with QD CMPs. Elevated Troponin - Initial trop 0.170 but downtrended to 0.125. Likely 2/2 rhabdo. GERD - Chronic and stable. Will continue home Protonix. Methamphetamine abuse - UDS + for meth and opiates. - Will spiritual counselor on cessation. Nicotine abuse - Patient refused nicotine patch. - Will spiritual counselor on cessation. Hyperkalemia, resolved - K WNLs at 4.8 this AM. Will continue to monitor. VTE: heparin Diet: Renal high protein IVFs: none Abx: none Code status: Full Addendum - Attending - Attending Attestation Date/Time: 11/24/18 7334 I personally evaluated the patient and discussed the management with Dr. Berkowitz. I agree with the History, Examination, Assessment and Plan documented above with any addition or exceptions noted below. The patient is sleepy this morning. He did not undergo dialysis yesterday. Creatinine has increased again this morning. Potassium is increased from 4.3 to 4.8.
[2018-11-24 06:54] LABS: CK (CPK) 9773 U/L (30-200)
[2018-11-24] MEDS: Heparin 5,000 UNITS/ML VIAL SC SCH ×3 (08:13→20:44)
[2018-11-24] MEDS ORDERED: Gabapentin 100 MG CAP PO SCH (09:00)
[2018-11-24] MEDS ORDERED: Amlodipine 5 MG TAB PO SCH (09:00)
--- NOTE | 2018-11-24 15:43 | PRG ---
DATE OF SERVICE: 11/24/2018 SUBJECTIVE: A 38-year-old gentleman, being seen for end-stage renal disease. The patient denied nausea, vomiting, or chest pain. OBJECTIVE: CONSTITUTIONAL: The patient is awake and alert. VITAL SIGNS: Afebrile, pulse 85, breathing 16, and blood pressure 132/81. GENERAL APPEARANCE AND MENTAL STATUS: Fair. HEAD/NECK: Normocephalic. Atraumatic. EYES: EOMI. No deformity. EARS: Clear. No ulcers. NOSE: Intact. No lesions. MOUTH: Clear. No discharge. THROAT: Clear. No exudate. LUNGS: Clear. No crackles. CARDIAC: S1, S2. No rub. ABDOMEN: Benign. Bowel sounds positive. GENITALIA/RECTUM: Ontiveros absent. BACK/EXTREMITIES: Edema 0+. NEUROLOGICAL: Alert and motor intact. SKIN: LYMPHATICS: LABORATORY DATA: Labs reviewed. ASSESSMENT AND PLAN: Stage 6 chronic kidney disease, plan dialysis. The patient has acute kidney injury, so we will admit him for outpatient dialysis. Acute renal failure, follow renal function closely. The patient is nonoliguric. Hypertension, stable. Anemia, stable. Medication based on GFR appropriate. Job ID: [id number]
[2018-11-25 05:42] LABS: ALT (SGPT) 122 U/L (8-55); AST (SGOT) 170 U/L (5-34); Alkaline Phosphatase 58 U/L (40-150); Anion Gap 17 mmol/L (10-20); BUN (Urea Nitrogen) 53 mg/dL (8.9-20.6); Bilirubin, Total 0.4 mg/dL (0.2-1.2); Calc. Creatinine Clearance 39 mL/min (70-130); Calcium 8.2 mg/dL (7.8-10.44); Carbon Dioxide 23 mmol/L (22-29); Chloride 103 mmol/L (98-107); Estimated GFR-MDRD 11; Globulin 3.1 g/dL (2.4-3.5); Glucose 101 mg/dL (70-105); Potassium 5.2 mmol/L (3.5-5.1); Protein, Total 6.1 g/dL (6.0-8.3); Sodium 138 mmol/L (136-145)
[2018-11-25 05:54] LABS: CK (CPK) 4402 U/L (30-200)
--- NOTE | 2018-11-25 06:08 | PDOC.FM ---
- Subjective Subjective: NAEO. Patient reports that he is moving around well. Denies any SOB, chest pain or LE edema. Does report some depression and emotional lability but denies any SI or HI. Does not want to get back on drugs once he is discharged. - Objective MAR Reviewed: Yes Vital Signs & Weight: Vital Signs (12 hours) Temp Pulse Resp BP Pulse Ox 11/25/18 04:00 98.2 F 85 18 145/89 H 94 L 11/24/18 21:48 95 11/24/18 20:00 98.8 F 89 20 138/84 95 Weight Weight 154.1 kg I&O: 11/23/18 11/24/18 11/25/18 06:59 06:59 06:59 Intake Total 6030 4168 1890 Output Total 2950 1650 2150 Balance 3080 2518 -260 Result Diagrams: 11/24/18 05:09 11/25/18 05:02 Phys Exam - Physical Examination Constitutional: NAD HEENT: moist MMs Neck: supple, full ROM Respiratory: no wheezing, no rales, no rhonchi, clear to auscultation bilateral Cardiovascular: RRR, no significant murmur Musculoskeletal: no edema Neurological: non-focal, moves all 4 limbs Psychiatric: normal affect, A&O x 3 Skin: no rash, normal turgor, cap refill <2 seconds Dx/Plan (1) Acute renal failure Status: Acute (2) Rhabdomyolysis Code(s): M62.82 - RHABDOMYOLYSIS Status: Acute (3) Transaminitis Code(s): R74.0 - NONSPEC ELEV OF LEVELS OF TRANSAMNS & LACTIC ACID DEHYDRGNSE Status: Acute (4) GERD (gastroesophageal reflux disease) Code(s): K21.9 - GASTRO-ESOPHAGEAL REFLUX DISEASE WITHOUT ESOPHAGITIS Status: Chronic (5) Methamphetamine abuse Code(s): F15.10 - OTHER STIMULANT ABUSE, UNCOMPLICATED Status: Chronic (6) Nicotine abuse Code(s): Z72.0 - TOBACCO USE Status: Chronic (7) Obesity Code(s): E66.9 - OBESITY, UNSPECIFIED Status: Chronic - Plan Plan: 38YOM with a h/o of methamphetamine abuse who presented in ARF 2/2 rhabdomyolysis from methamphetamine use & poor PO intake. ARF 2/2 Rhabdomyolysis - Patient is s/p HD again yesterday with only PO hydration and Cr down to 5.65 this AM. CPK down to 4k this AM. - Will continue to encourage aggressive PO fluids & will continue to trend CPK and CMP QD. Transaminitis - AST/ALT continue to downtrend. - Likely 2/2 rhabdo - Will continue to trend with QD CMPs. Elevated Troponin - Initial trop 0.170 but downtrended to 0.125. Likely 2/2 rhabdo. GERD - Chronic and stable. Will continue home Protonix. Methamphetamine abuse - UDS + for meth and opiates. - Will nutrition counselor on cessation. Nicotine abuse - Patient refused nicotine patch. - Will nutrition counselor on cessation. Hyperkalemia - K up to 5.2 this AM. Will give kayexalate and lactulose x1 as patient may not be dialyzed again today. Will continue to monitor. VTE: heparin Diet: Renal high protein IVFs: none Abx: none Code status: Full
[2018-11-25] MEDS: Heparin 5,000 UNITS/ML VIAL SC SCH (09:16)
[2018-11-25] MEDS ORDERED: Heparin 10,000 UNITS/ 10 ML VIAL ONE ×2 (11:11)
--- NOTE | 2018-11-25 12:10 | PRG ---
DATE OF SERVICE: 11/25/2018 Mr. Molina was admitted with meth use and rhabdomyolysis that caused acute renal failure. He is currently on dialysis, but otherwise is looking and feeling much better. He is walking in the hallway with no distress. Today's labs reveal a BUN of 53 and creatinine of 5.65. This is a marked improvement over his admitted levels. We will continue to follow with Dr. Fleming in the Nephrology service. His CK has significantly dropped down to 4400 from an admission level that was greater than 40,000. Job ID: [id number]
[2018-11-25 13:08] LABS: Potassium 5.2 mmol/L (3.5-5.1)
--- NOTE | 2018-11-25 13:34 | PRG ---
DATE OF SERVICE: 11/25/2018 SUBJECTIVE: A 38-year-old gentleman, being seen for end-stage kidney disease. The patient denied any nausea, vomiting, or chest pain. OBJECTIVE: CONSTITUTIONAL: The patient is awake and alert. VITAL SIGNS: Afebrile. Pulse 75, breathing 16, blood pressure 119/71. GENERAL APPEARANCE AND MENTAL STATUS: Fair. HEAD/NECK: Normocephalic. Atraumatic. EYES: EOMI. No deformity. EARS: Clear. No ulcers. NOSE: Intact. No lesions. MOUTH: Clear. No discharge. THROAT: Clear. No exudate. LUNGS: Clear. No crackles. CARDIAC: S1, S2. No rub. ABDOMEN: Benign. Bowel sounds positive. GENITALIA/RECTUM: Ontiveros absent. BACK/EXTREMITIES: Edema 0+. NEUROLOGICAL: Alert and motor intact. SKIN: LYMPHATICS: LABORATORY DATA: Labs reviewed. ASSESSMENT AND PLAN: 1. Stage 6 chronic kidney disease with hyperkalemia, plan dialysis. 2. Hypertension, stable. 3. Anemia, stable. 4. Medication based on GFR appropriate. Job ID: [id number]
[2018-11-25 18:49] LABS: Potassium 4.3 mmol/L (3.5-5.1)
[2018-11-26 05:37] LABS: ALT (SGPT) 107 U/L (8-55); AST (SGOT) 99 U/L (5-34); Albumin 3.3 g/dL (3.5-5.0); Alkaline Phosphatase 65 U/L (40-150); Anion Gap 14 mmol/L (10-20); BUN (Urea Nitrogen) 46 mg/dL (8.9-20.6); Bilirubin, Total 0.6 mg/dL (0.2-1.2); CK (CPK) 1960 U/L (30-200); Calc. Creatinine Clearance 49 mL/min (70-130); Calcium 8.8 mg/dL (7.8-10.44); Carbon Dioxide 28 mmol/L (22-29); Chloride 103 mmol/L (98-107); Estimated GFR-MDRD 15; Globulin 3.2 g/dL (2.4-3.5); Glucose 94 mg/dL (70-105); Potassium 4.7 mmol/L (3.5-5.1); Protein, Total 6.5 g/dL (6.0-8.3); Sodium 140 mmol/L (136-145)
--- NOTE | 2018-11-26 06:00 | PDOC.FM ---
- Subjective Subjective: NAEO. Patient in and out of consciousness over course of interview. States he slept well and denies ever having had issues with his BP previously. - Objective MAR Reviewed: Yes Vital Signs & Weight: Vital Signs (12 hours) Temp Pulse Resp BP BP Pulse Ox 11/26/18 04:00 98.2 F 87 20 170/98 H 96 11/25/18 20:45 98.0 F 82 18 165/82 H 94 L Weight Weight 154.1 kg I&O: 11/24/18 11/25/18 11/26/18 06:59 06:59 06:59 Intake Total 4168 2090 Output Total 5486 2359 2038 Balance 4640 -274 -3859 Result Diagrams: 11/24/18 05:09 11/26/18 04:50 Phys Exam - Physical Examination Constitutional: NAD HEENT: moist MMs Neck: supple, full ROM Respiratory: no wheezing, no rales, no rhonchi, clear to auscultation bilateral Cardiovascular: RRR, no significant murmur Musculoskeletal: no edema Neurological: non-focal, moves all 4 limbs Psychiatric: normal affect, A&O x 3 Skin: no rash, normal turgor Dx/Plan (1) Acute renal failure Status: Acute (2) Rhabdomyolysis Code(s): M62.82 - RHABDOMYOLYSIS Status: Acute (3) Transaminitis Code(s): R74.0 - NONSPEC ELEV OF LEVELS OF TRANSAMNS & LACTIC ACID DEHYDRGNSE Status: Acute (4) GERD (gastroesophageal reflux disease) Code(s): K21.9 - GASTRO-ESOPHAGEAL REFLUX DISEASE WITHOUT ESOPHAGITIS Status: Chronic (5) Methamphetamine abuse Code(s): F15.10 - OTHER STIMULANT ABUSE, UNCOMPLICATED Status: Chronic (6) Nicotine abuse Code(s): Z72.0 - TOBACCO USE Status: Chronic (7) Obesity Code(s): E66.9 - OBESITY, UNSPECIFIED Status: Chronic - Plan Plan: 38YOM with a h/o of methamphetamine abuse who presented in ARF 2/2 rhabdomyolysis from methamphetamine use & poor PO intake. ARF 2/2 Rhabdomyolysis - Patient is s/p HD yesterday with only PO hydration and Cr down to 4.51 this AM. CPK down to 1,960k this AM. - Will continue aggressive PO hydration & will continue to trend CPK and BMPs QD. - Prognosis remains poor regarding full return of renal function. Pending outpatient HD chair per nephro recs. Elevated BP w/o diagnosis of HTN - Patient has had BPs in the pre-hypertensive range since admission but had 2 significantly elevated BPs overnight. Will start low dose coreg today and titrate PRN for a goal BP of <130/80. Transaminitis - AST/ALT continue to downtrend. - Likely 2/2 rhabdo Elevated Troponin - Initial trop 0.170 but downtrended to 0.125. Likely 2/2 rhabdo. GERD - Chronic and stable. Will continue home Protonix. Methamphetamine abuse - UDS + for meth and opiates. - Will auto club travel counselor on cessation. Nicotine abuse - Patient refused nicotine patch. - Will auto club travel counselor on cessation. Hyperkalemia - K up to 5.2 this AM. Will give kayexalate and lactulose x1 as patient may not be dialyzed again today. Will continue to monitor. VTE PPx: SCDs GI PPx: protonix Diet: Renal high protein, low salt IVFs: none Abx: none Code status: Full
[2018-11-26] MEDS ORDERED: Carvedilol 3.125 MG TAB PO SCH (08:00)
--- NOTE | 2018-11-26 12:30 | PRG ---
DATE OF SERVICE: 11/26/2018 SUBJECTIVE: A 38-year-old gentleman, being seen for end-stage renal disease. The patient denies any nausea, vomiting, or chest pain. OBJECTIVE: GENERAL: The patient is awake and alert. VITAL SIGNS: Pulse 70, breathing 16, blood pressure 165/82. GENERAL APPEARANCE AND MENTAL STATUS: Fair. HEAD/NECK: Normocephalic. Atraumatic. EYES: EOMI. No deformity. EARS: Clear. No ulcers. NOSE: Intact. No lesions. MOUTH: Clear. No discharge. THROAT: Clear. No exudate. LUNGS: Clear. No crackles. CARDIAC: S1, S2. No rub. ABDOMEN: Benign. Bowel sounds positive. GENITALIA/RECTUM: Ontiveros absent. BACK/EXTREMITIES: Edema 0+. NEUROLOGICAL: Alert and motor intact. SKIN: LYMPHATICS: LABORATORY DATA: Reviewed. ASSESSMENT AND PLAN: 1. Stage 6 chronic kidney disease, plan dialysis. 2. Hypertension, stable. 3. Anemia, stable. 4. Medication based on GFR appropriate. The patient will have dialysis on Tuesday, Tuesday, Tuesday. Job ID: [id number]
--- NOTE | 2018-11-26 13:10 | PRG ---
DATE OF SERVICE: 11/26/2018 Mr. Molina is doing fine. He offers no new complaints. This morning, his BUN is 46, creatinine 4.51. He is continued to undergo dialysis and we are awaiting placement for a dialysis bed. Job ID: [id number]
--- NOTE | 2018-11-27 06:35 | PDOC.FM ---
- Subjective Subjective: NAEO. Patient reports that he feels well this AM. Denies any headache, chest pain, SOB, or cramping. - Objective MAR Reviewed: Yes Vital Signs & Weight: Vital Signs (12 hours) Temp Pulse Resp BP BP Pulse Ox 11/27/18 00:00 98.5 F 90 20 156/82 H 97 11/26/18 20:00 98.7 F 102 H 21 H 172/79 H 94 L Weight Weight 154.1 kg I&O: 11/25/18 11/26/18 11/27/18 06:59 06:59 06:59 Intake Total 0 2130 Output Total 2750 3425 1950 Balance -660 -3425 180 Result Diagrams: 11/24/18 05:09 11/27/18 06:10 Phys Exam - Physical Examination Constitutional: NAD HEENT: moist MMs Neck: supple, full ROM Respiratory: no wheezing, no rales, no rhonchi, clear to auscultation bilateral Cardiovascular: RRR, no significant murmur Musculoskeletal: no edema Neurological: non-focal, moves all 4 limbs Psychiatric: normal affect, A&O x 3 Skin: no rash, normal turgor Dx/Plan (1) Acute renal failure Status: Acute (2) Rhabdomyolysis Code(s): M62.82 - RHABDOMYOLYSIS Status: Acute (3) Transaminitis Code(s): R74.0 - NONSPEC ELEV OF LEVELS OF TRANSAMNS & LACTIC ACID DEHYDRGNSE Status: Acute (4) GERD (gastroesophageal reflux disease) Code(s): K21.9 - GASTRO-ESOPHAGEAL REFLUX DISEASE WITHOUT ESOPHAGITIS Status: Chronic (5) Methamphetamine abuse Code(s): F15.10 - OTHER STIMULANT ABUSE, UNCOMPLICATED Status: Chronic (6) Nicotine abuse Code(s): Z72.0 - TOBACCO USE Status: Chronic (7) Obesity Code(s): E66.9 - OBESITY, UNSPECIFIED Status: Chronic - Plan Plan: 38YOM with a h/o of methamphetamine abuse who presented in ARF 2/2 rhabdomyolysis from methamphetamine use & poor PO intake. ARF 2/2 Rhabdomyolysis - Patient is s/p HD yesterday and Cr stable at 4.5 this AM. CPK down to ~800k today. - Will continue aggressive PO hydration & will continue to trend BMPs QD. - Prognosis remains poor regarding full return of renal function. Pending outpatient HD chair per nephro recs. Will require MWF HD per nephro upon discharge. Elevated BP w/o diagnosis of HTN - Patient had elevated BPs over the course of the day yesterday. Will consider starting low dose coreg today and titrate PRN for a goal BP of <130/80. Transaminitis - AST/ALT continue to downtrend. - Likely 2/2 rhabdo Elevated Troponin - Initial trop 0.170 but downtrended to 0.125. Likely 2/2 rhabdo. GERD - Chronic and stable. Will continue home Protonix. Methamphetamine abuse - UDS + for meth and opiates. - Will certified rehabilitation counselor on cessation. Nicotine abuse - Patient refused nicotine patch. - Will certified rehabilitation counselor on cessation. Hyperkalemia, resolved - K up to 4.8 this AM. Will continue to monitor. VTE PPx: SCDs GI PPx: protonix Diet: Renal high protein, low salt IVFs: none Abx: none Code status: Full Dispo: Stable for d/c pending outpatient HD approval.
[2018-11-27 07:20] LABS: ALT (SGPT) 91 U/L (8-55); AST (SGOT) 57 U/L (5-34); Albumin 3.4 g/dL (3.5-5.0); Alkaline Phosphatase 69 U/L (40-150); Anion Gap 18 mmol/L (10-20); BUN (Urea Nitrogen) 53 mg/dL (8.9-20.6); Bilirubin, Total 0.7 mg/dL (0.2-1.2); CK (CPK) 879 U/L (30-200); Calc. Creatinine Clearance 49 mL/min (70-130); Calcium 9.2 mg/dL (7.8-10.44); Carbon Dioxide 24 mmol/L (22-29); Chloride 102 mmol/L (98-107); Estimated GFR-MDRD 15; Globulin 3.2 g/dL (2.4-3.5); Glucose 91 mg/dL (70-105); Potassium 4.8 mmol/L (3.5-5.1); Protein, Total 6.6 g/dL (6.0-8.3); Sodium 139 mmol/L (136-145)
--- NOTE | 2018-11-27 10:10 | ULT ---
ULTRASOUND VESSEL MAPPING FOR DIALYSIS ACCESS: HISTORY: ESRD FINDINGS: RIGHT UPPER EXTREMITY CEPHALIC VEIN Proximal Arm: 5.1 mm Mid Arm: 4.8 mm Distal Arm: 3.7 mm Antecubital Fossa: 1.4 mm Proximal Forearm: 3.3 mm Mid Forearm: 3.3 mm Distal Forearm: 3.0 mm BASILIC VEIN Proximal Arm: 6.4 mm Mid Arm: 6.2 mm Distal Arm: 4.1 mm Antecubital Fossa: 4.4 mm Proximal Forearm: 4.2 mm Mid Forearm: 2.0 mm Distal Forearm: 1.7 mm BRACHIAL ARTERY: 5.8 mm RADIAL ARTERY: 2.9 mm ULNAR ARTERY: 3.0 mm LEFT UPPER EXTREMITY CEPHALIC VEIN Proximal Arm: 6.5 mm Mid Arm: 5.2 mm Distal Arm: 5.1 mm Antecubital Fossa: 4.5 mm Proximal Forearm: 3.4 mm Mid Forearm: 3.0 mm Distal Forearm: 3.6 mm BASILIC VEIN Proximal Arm: 5.3 mm Mid Arm: 5.8 mm Distal Arm: 4.8 mm Antecubital Fossa: 3.0 mm Proximal Forearm: 2.8 mm Mid Forearm: 2.5 mm Distal Forearm: 2.2 mm BRACHIAL ARTERY: 5.0 mm RADIAL ARTERY: 2.8 mm ULNAR ARTERY: 3.0 mm Transcribed Date/Time: 11/27/2018 10:18 AM
--- NOTE | 2018-11-27 11:36 | PRG ---
DATE OF SERVICE: 11/27/2018 SUBJECTIVE: Patient was seen and examined at bedside and overnight events noted. Patient denies any shortness of breath or chest pain or palpitation. No history of nausea or vomiting or diarrhea or fever or chills or cramps. OBJECTIVE: GENERAL: This is an obese male, in no apparent distress. VITAL SIGNS: Temperature , blood pressure 156/82. HEENT: Atraumatic, normocephalic. Oral mucosa is moist NECK: Supple. CARDIOVASCULAR: S1, S2 heard. Rate and rhythm regular. RESPIRATORY: Clear to auscultation. GASTROINTESTINAL: Abdomen is soft. MUSCULOSKELETAL: No tenderness. No edema. DERMATOLOGIC: No skin rash. NEUROLOGIC: Alert and awake and oriented X3. No focal neurologic deficits. Moving all the extremities. PSYCHIATRIC: Mood and affect normal. LABORATORY DATA: Potassium 4.8, BUN is 53, creatinine is 4.5. ASSESSMENT AND PLAN: 1. Acute kidney injury on chronic kidney disease stage 4. Renal function seems to be stable, having good urine output. Continue on dialysis with close monitoring of renal function. 2. Hypertension, stable. 3. Anemia. 4. Substance abuse certified personal finance counselor. 5. Monitor urine output closely and monitor labs closely. No indication for dialysis today. Job ID: [id number]
--- NOTE | 2018-11-27 11:38 | PRG ---
DATE OF SERVICE: 11/27/2018 Mr. Molina looks and feels fine this morning. He is awaiting bed placement for his dialysis. He has also expressed an interest in being evaluated for peritoneal dialysis. This will be arranged. Job ID: [id number]
[2018-11-27 13:53] LABS: Syphilis Antibody Nonreactive (Nonreactive); Syphilis Antibody Index 0.05 S/CO (<1.00 Non-Reactive)
[2018-11-27 13:54] LABS: HIV (1/2) Antibody/Antigen Non-Reactive (NonReactive); HIV 1/2 INDEX 0.13 S/CO (<1.00)
[2018-11-27] MEDS ORDERED: Ondansetron PF 4 MG/2 ML Vial IVP PRN (14:26)
[2018-11-27] MEDS ORDERED: Carvedilol 3.125 MG TAB PO SCH (17:00)
[2018-11-27] MEDS: Calcium Carbonate 500 MG ChewTAB PO PRN ×2 (17:37→22:31)
--- NOTE | 2018-11-28 06:09 | PDOC.FM ---
- Subjective Subjective: Patient had an episode of SOB with back pain overnight that eventually subsided after taking some tums. Also had fluctuating BPs per nursing staff. Patient denies any headache, vision changes, SOB, back or stomach pain on exam this AM. States he is ready to go home. - Objective MAR Reviewed: Yes Vital Signs & Weight: Vital Signs (12 hours) Temp Pulse Resp BP BP Pulse Ox 11/28/18 04:28 98.4 F 89 18 167/89 H 95 11/28/18 00:16 98.7 F 98 20 146/90 H 95 11/27/18 20:00 98.3 F 93 20 158/95 H 97 11/27/18 19:40 99.2 F 87 20 171/100 H 97 Weight Weight 154.1 kg I&O: 11/26/18 11/27/18 11/28/18 06:59 06:59 06:59 Intake Total 2130 4080 Output Total 3425 1950 Balance -3425 180 4080 Result Diagrams: 11/24/18 05:09 11/28/18 06:36 Phys Exam - Physical Examination Constitutional: NAD HEENT: moist MMs Neck: supple, full ROM Respiratory: no wheezing, no rales, no rhonchi, clear to auscultation bilateral Cardiovascular: RRR, no significant murmur Gastrointestinal: soft, non-tender, positive bowel sounds Musculoskeletal: no edema Neurological: non-focal, moves all 4 limbs Psychiatric: normal affect, A&O x 3 Skin: no rash, normal turgor, cap refill <2 seconds Dx/Plan (1) Acute renal failure Status: Acute (2) Rhabdomyolysis Code(s): M62.82 - RHABDOMYOLYSIS Status: Acute (3) Transaminitis Code(s): R74.0 - NONSPEC ELEV OF LEVELS OF TRANSAMNS & LACTIC ACID DEHYDRGNSE Status: Acute (4) GERD (gastroesophageal reflux disease) Code(s): K21.9 - GASTRO-ESOPHAGEAL REFLUX DISEASE WITHOUT ESOPHAGITIS Status: Chronic (5) Methamphetamine abuse Code(s): F15.10 - OTHER STIMULANT ABUSE, UNCOMPLICATED Status: Chronic (6) Nicotine abuse Code(s): Z72.0 - TOBACCO USE Status: Chronic (7) Obesity Code(s): E66.9 - OBESITY, UNSPECIFIED Status: Chronic - Plan Plan: 38YOM with a h/o of methamphetamine abuse who presented in ARF 2/2 rhabdomyolysis from methamphetamine use & poor PO intake. ARF 2/2 Rhabdomyolysis - Patient did not undergo HD yesterday and Cr stable at 4.4 this AM. Will continue to monitor. No longer any need to trend CPK. - Prognosis remains poor regarding full return of renal function. Pending outpatient HD chair per nephro recs. Will require MWF HD per nephro upon discharge. Elevated BP w/o diagnosis of HTN - Patient again had elevated BPs over the course of the day yesterday. Will continue coreg today and increase to 6.25 BID dosing. Transaminitis - AST/ALT continue to downtrend. - Likely 2/2 rhabdo Elevated Troponin - Initial trop 0.170 but downtrended to 0.125. Likely 2/2 rhabdo. GERD - Chronic and stable. Will continue home Protonix. Methamphetamine abuse - UDS + for meth and opiates. - Will recreation counselor on cessation. Nicotine abuse - Patient refused nicotine patch. - Will recreation counselor on cessation. Hyperkalemia, resolved - K ? this AM. Will continue to monitor. VTE PPx: SCDs GI PPx: protonix Diet: Renal high protein, low salt IVFs: none Abx: none Code status: Full Dispo: Stable for d/c pending outpatient HD approval.
[2018-11-28] MEDS ORDERED: Carvedilol 3.125 MG TAB PO SCH (06:11)
[2018-11-28 07:06] LABS: ALT (SGPT) 76 U/L (8-55); AST (SGOT) 42 U/L (5-34); Albumin 3.5 g/dL (3.5-5.0); Alkaline Phosphatase 73 U/L (40-150); Anion Gap 15 mmol/L (10-20); BUN (Urea Nitrogen) 62 mg/dL (8.9-20.6); Bilirubin, Total 0.5 mg/dL (0.2-1.2); Calc. Creatinine Clearance 50 mL/min (70-130); Calcium 9.8 mg/dL (7.8-10.44); Carbon Dioxide 25 mmol/L (22-29); Chloride 106 mmol/L (98-107); Estimated GFR-MDRD 15; Globulin 3.5 g/dL (2.4-3.5); Glucose 96 mg/dL (70-105); Potassium 5.1 mmol/L (3.5-5.1); Sodium 141 mmol/L (136-145)
[2018-11-28] MEDS: Carvedilol 6.25 MG TAB PO SCH ×2 (09:18→18:03)
[2018-11-28] MEDS ORDERED: hydrALAZINE 20 MG/ML VIAL SLOW IVP PRN (12:06)
[2018-11-28] MEDS ORDERED: Acetaminophen 500 MG TAB PO PRN (12:07)
--- NOTE | 2018-11-28 12:31 | PRG ---
DATE OF SERVICE: 11/28/2018 Mr. Molina is stable. We are awaiting bed placement. His BUN is 62, creatinine is 4.44. Job ID: [id number]
--- NOTE | 2018-11-28 14:22 | PRG ---
DATE OF SERVICE: 11/28/2018 SUBJECTIVE: Patient was seen and examined at bedside and overnight events noted. Patient denies any shortness of breath or chest pain or palpitation. No history of nausea or vomiting or diarrhea or fever or chills or cramps. OBJECTIVE: GENERAL: This is a morbidly obese male, in no apparent distress. VITAL SIGNS: Temperature 97.9. Heart rate 72. Respiratory rate 20. Blood pressure 152/74. HEENT: Atraumatic, normocephalic. Oral mucosa is moist NECK: Supple. CARDIOVASCULAR: S1, S2 heard. Rate and rhythm regular. RESPIRATORY: Clear to auscultation. GASTROINTESTINAL: Abdomen is soft. MUSCULOSKELETAL: No tenderness. No edema. DERMATOLOGIC: No skin rash. NEUROLOGIC: Alert and awake and oriented X3. No focal neurologic deficits. Moving all the extremities. PSYCHIATRIC: Mood and affect normal. LABORATORY DATA: Potassium 5.1, BUN is 62, and creatinine is 4.4. ASSESSMENT AND PLAN: 1. Acute kidney injury on chronic kidney stage 4 with stable creatinine with good urine output. BUN continues to rise. No indication for dialysis today. Mild hyperkalemia noted. 2. Edema, controlled. 3. Hypertension, stable. 4. Anemia. 5. Continue dialysis as outpatient with close monitoring of renal function. Limit potassium intake. No indication for dialysis today. Continue dialysis on Tuesday, Tuesday, and Tuesday. Job ID: [id number]
[2018-11-28] MEDS ORDERED: hydrALAZINE 25 MG TAB PO PRN (15:47)
[2018-11-28] MEDS: Calcium Carbonate 500 MG ChewTAB PO PRN (22:27)
[2018-11-29 06:23] LABS: ALT (SGPT) 57 U/L (8-55); AST (SGOT) 25 U/L (5-34); Albumin 3.4 g/dL (3.5-5.0); Alkaline Phosphatase 75 U/L (40-150); Anion Gap 15 mmol/L (10-20); BUN (Urea Nitrogen) 64 mg/dL (8.9-20.6); Bilirubin, Total 0.4 mg/dL (0.2-1.2); Calc. Creatinine Clearance 62 mL/min (70-130); Calcium 9.6 mg/dL (7.8-10.44); Carbon Dioxide 23 mmol/L (22-29); Chloride 105 mmol/L (98-107); Estimated GFR-MDRD 19; Globulin 3.5 g/dL (2.4-3.5); Glucose 119 mg/dL (70-105); Potassium 4.7 mmol/L (3.5-5.1); Protein, Total 6.9 g/dL (6.0-8.3); Sodium 138 mmol/L (136-145)
--- NOTE | 2018-11-29 07:10 | PDOC.FM ---
- Subjective Subjective: NAEO. Patient reports he feels well this AM. Is still very much ready to go home. Denies any headache, blurry vision, chest pain or SOB. - Objective MAR Reviewed: Yes Vital Signs & Weight: Vital Signs (12 hours) Temp Pulse Resp BP BP BP Pulse Ox 11/29/18 04:00 98.2 F 81 18 126/79 95 11/29/18 00:00 98.0 F 78 18 130/82 94 L 11/28/18 20:00 96 11/28/18 19:36 97.8 F 85 20 175/78 H 96 Weight Weight 154.1 kg I&O: 11/28/18 11/29/18 11/30/18 06:59 06:59 06:59 Intake Total 6080 4620 Output Total 1000 1500 Balance 5080 3120 Result Diagrams: 11/24/18 05:09 11/29/18 05:50 Phys Exam - Physical Examination Constitutional: NAD HEENT: moist MMs Neck: supple, full ROM Respiratory: no wheezing, no rales, no rhonchi, clear to auscultation bilateral Cardiovascular: RRR, no significant murmur Neurological: non-focal, moves all 4 limbs Psychiatric: normal affect, A&O x 3 Skin: no rash, normal turgor Dx/Plan (1) Acute renal failure Status: Acute (2) Rhabdomyolysis Code(s): M62.82 - RHABDOMYOLYSIS Status: Acute (3) Transaminitis Code(s): R74.0 - NONSPEC ELEV OF LEVELS OF TRANSAMNS & LACTIC ACID DEHYDRGNSE Status: Acute (4) GERD (gastroesophageal reflux disease) Code(s): K21.9 - GASTRO-ESOPHAGEAL REFLUX DISEASE WITHOUT ESOPHAGITIS Status: Chronic (5) Methamphetamine abuse Code(s): F15.10 - OTHER STIMULANT ABUSE, UNCOMPLICATED Status: Chronic (6) Nicotine abuse Code(s): Z72.0 - TOBACCO USE Status: Chronic (7) Obesity Code(s): E66.9 - OBESITY, UNSPECIFIED Status: Chronic - Plan Plan: 38YOM with a h/o of methamphetamine abuse who presented in ARF 2/2 rhabdomyolysis from methamphetamine use & poor PO intake. ARF 2/2 Rhabdomyolysis - Patient did not undergo HD yesterday and Cr slightly improved to 3.61 this AM even w/o HD since 11/26. Will continue to monitor. No longer any need to trend CPK. - Prognosis remains poor regarding full return of renal function. Pending outpatient HD chair per nephro recs. Will require MWF HD per nephro upon discharge. Elevated BP w/o diagnosis of HTN - Patient again had elevated BPs over the course of the day yesterday. Will continue coreg at 6.25 BID dosing and consider adding hydralazine for BP control today. Transaminitis - AST/ALT continue to downtrend. - Likely 2/2 rhabdo Elevated Troponin - Initial trop 0.170 but downtrended to 0.125. Likely 2/2 rhabdo. GERD - Chronic and stable. Will continue home Protonix. Methamphetamine abuse - UDS + for meth and opiates. - Will patient financial counselor on cessation. Nicotine abuse - Patient refused nicotine patch. - Will patient financial counselor on cessation. Hyperkalemia, resolved - K 4.8 this AM. Will continue to monitor. VTE PPx: SCDs GI PPx: protonix Diet: Renal high protein, low salt, low K IVFs: none Abx: none Code status: Full Dispo: Stable for d/c pending outpatient HD approval. Addendum - Attending - Attending Attestation Date/Time: 11/29/18 1112 I personally evaluated the patient and discussed the management with Dr. Berkowitz. I agree with the History, Examination, Assessment and Plan documented above with any addition or exceptions noted below. Patient here with ARF 2/2 rhabdomyolysis in the setting of polysubstance abuse. Renal function continues to make mild improvements and he is making urine daily. Nephro on board, awaiting dialysis recs. No acute reason for dialysis identified at this time. Will increase Coreg to obtain better HTN control. Otherwise he is overall stable for discharge and waiting outpatient HD placement.
[2018-11-29] MEDS: Carvedilol 6.25 MG TAB PO SCH ×2 (08:48→18:02)
[2018-11-29] MEDS ORDERED: Carvedilol 3.125 MG TAB PO SCH (10:30)
--- NOTE | 2018-11-29 11:59 | PRG ---
DATE OF SERVICE: 11/29/2018 SUBJECTIVE: Patient was seen and examined at bedside and overnight events noted. Patient denies any shortness of breath or chest pain or palpitation. No history of nausea or vomiting or diarrhea or fever or chills or cramps. OBJECTIVE: GENERAL: This is an obese male, in no apparent distress. VITAL SIGNS: Temperature , blood pressure 138/84. HEENT: Atraumatic, normocephalic. Oral mucosa is moist NECK: Supple. CARDIOVASCULAR: S1, S2 heard. Rate and rhythm regular. RESPIRATORY: Clear to auscultation. GASTROINTESTINAL: Abdomen is soft. MUSCULOSKELETAL: No tenderness. No edema. DERMATOLOGIC: No skin rash. NEUROLOGIC: Alert and awake and oriented X3. No focal neurologic deficits. Moving all the extremities. PSYCHIATRIC: Mood and affect normal. LABORATORY DATA: Potassium is 4.7, BUN is 64, creatinine is 3.6. ASSESSMENT AND PLAN: 1. Acute kidney injury on chronic kidney disease. Creatinine with improvement without dialysis for the last few days. It seems like he is having renal recovery. Good urine output also noted. 2. Edema. 3. Hypertension. 4. Anemia. 5. Overall, labs are stable. No acute indication for dialysis. We would like to monitor one more day, and if he is stable, we can remove tunneled dialysis catheter and discharge him home. Job ID: [id number]
[2018-11-29 13:13] LABS: Hep C PCR-Quant HCV Not Detected IU/mL (.)
[2018-11-29 15:03] VITALS: BMI 44.8
[2018-11-29] MEDS ORDERED: Carvedilol 6.25 MG TAB PO SCH (17:00)
[2018-11-29] MEDS: Calcium Carbonate 500 MG ChewTAB PO PRN (21:49)
[2018-11-30 06:34] LABS: ALT (SGPT) 46 U/L (8-55); AST (SGOT) 20 U/L (5-34); Albumin 3.5 g/dL (3.5-5.0); Alkaline Phosphatase 74 U/L (40-150); Anion Gap 13 mmol/L (10-20); BUN (Urea Nitrogen) 68 mg/dL (8.9-20.6); Bilirubin, Total 0.4 mg/dL (0.2-1.2); Calc. Creatinine Clearance 68 mL/min (70-130); Calcium 9.9 mg/dL (7.8-10.44); Carbon Dioxide 25 mmol/L (22-29); Chloride 107 mmol/L (98-107); Estimated GFR-MDRD 21; Globulin 3.6 g/dL (2.4-3.5); Glucose 87 mg/dL (70-105); Potassium 5.1 mmol/L (3.5-5.1); Protein, Total 7.1 g/dL (6.0-8.3); Sodium 140 mmol/L (136-145)
--- NOTE | 2018-11-30 08:07 | PDOC.FM ---
- Subjective Subjective: NAEO. Patient reports that he feels well this AM and is looking forward to going home. Has no complaints. Remains asymptomatic w/ elevated BPs. - Objective MAR Reviewed: Yes Vital Signs & Weight: Vital Signs (12 hours) Temp Pulse Resp BP Pulse Ox 11/30/18 07:55 98.9 F 80 18 149/88 H 94 L Weight Admit Weight 154.494 kg Weight 154.1 kg I&O: 11/29/18 11/30/18 12/01/18 06:59 06:59 06:59 Intake Total 4620 2500 Output Total 1500 750 Balance 3120 1750 Result Diagrams: 11/24/18 05:09 11/30/18 05:49 Phys Exam - Physical Examination Constitutional: NAD HEENT: moist MMs Neck: supple, full ROM Respiratory: no wheezing, no rales, no rhonchi, clear to auscultation bilateral Cardiovascular: RRR, no significant murmur Neurological: non-focal, moves all 4 limbs Psychiatric: normal affect, A&O x 3 Skin: no rash, normal turgor Dx/Plan (1) Acute renal failure Status: Acute (2) Rhabdomyolysis Code(s): M62.82 - RHABDOMYOLYSIS Status: Resolved (3) Transaminitis Code(s): R74.0 - NONSPEC ELEV OF LEVELS OF TRANSAMNS & LACTIC ACID DEHYDRGNSE Status: Acute (4) GERD (gastroesophageal reflux disease) Code(s): K21.9 - GASTRO-ESOPHAGEAL REFLUX DISEASE WITHOUT ESOPHAGITIS Status: Chronic (5) Methamphetamine abuse Code(s): F15.10 - OTHER STIMULANT ABUSE, UNCOMPLICATED Status: Chronic (6) Nicotine abuse Code(s): Z72.0 - TOBACCO USE Status: Chronic (7) Obesity Code(s): E66.9 - OBESITY, UNSPECIFIED Status: Chronic (8) Hypertension Code(s): I10 - ESSENTIAL (PRIMARY) HYPERTENSION Status: Acute - Plan Plan: 38YOM with a h/o of methamphetamine abuse who presented in ARF 2/2 rhabdomyolysis from methamphetamine use & poor PO intake. ARF 2/2 rhabdomyolysis - Patient did not undergo HD yesterday and Cr slightly improved to 3.28 this AM w/o HD since 11/26. Will continue to monitor. - Has been accepted by [facility] for outpatient HD but per the patient nephro plans to remove trialysis cath today since renal function continues to improve w / close outpatient f/u w/ nephro. HTN - Will continue coreg at 12.5 BID today since BPs were slightly better controlled & have meds continuously titrated as an outpatient. Transaminitis - AST/ALT continue to downtrend. - Likely 2/2 rhabdo Elevated Troponin - Initial trop 0.170 but downtrended to 0.125. Likely 2/2 rhabdo. GERD - Chronic and stable. Will continue home Protonix. Methamphetamine abuse - UDS + for meth and opiates. - Will appliance counselor on cessation. Nicotine abuse - Patient refused nicotine patch. - Will appliance counselor on cessation. Rhabdomyolysis - Resolved Hyperkalemia, resolved - K 5.1 this AM. Will continue to monitor. VTE PPx: SCDs GI PPx: protonix Diet: Renal high protein, low salt, low K IVFs: none Abx: none Code status: Full Dispo: Stable for d/c today w/ close outpatient follow-up. Addendum - Attending - Attending Attestation Date/Time: 11/30/18 1017 I personally evaluated the patient and discussed the management with Dr. Berkowitz. I agree with the History, Examination, Assessment and Plan documented above with any addition or exceptions noted below. Patient doing well, denies complaints. Continues to produce good urine. Renal labs continue to slowly improve. Await recommendations from Nephro but potential discharge home later today without the need for outpatient HD. Will need outpatient follow up with Nephrology.
[2018-11-30] MEDS: Carvedilol 6.25 MG TAB PO SCH (09:35)
[2018-11-30] MEDS ORDERED: Lidocaine 1% w/Epinephrine 1:100K 20 ML VIAL ONE (10:11)
--- NOTE | 2018-11-30 11:47 | PRG ---
DATE OF SERVICE: 11/30/2018 SUBJECTIVE: Patient was seen and examined at bedside and overnight events noted. Patient denies any shortness of breath or chest pain or palpitation. No history of nausea or vomiting or diarrhea or fever or chills or cramps. OBJECTIVE: GENERAL: This is an obese male, in no apparent distress. VITAL SIGNS: Temperature 98.9. Pulse 80. Respiratory rate 18. Blood pressure 149/88. HEENT: Atraumatic, normocephalic. Oral mucosa is moist NECK: Supple. CARDIOVASCULAR: S1, S2 heard. Rate and rhythm regular. RESPIRATORY: Clear to auscultation. GASTROINTESTINAL: Abdomen is soft. MUSCULOSKELETAL: No tenderness. No edema. DERMATOLOGIC: No skin rash. NEUROLOGIC: Alert and awake and oriented X3. No focal neurologic deficits. Moving all the extremities. PSYCHIATRIC: Mood and affect normal. LABORATORY DATA: Potassium is 5.1, BUN is 68, and creatinine is 3.2. ASSESSMENT AND PLAN: 1. Acute kidney injury, was dialysis dependent, but seems like creatinine is getting better. 2. Elevated BUN. Monitor closely. Advised to have increased hydration. 3. Elevated liver enzymes, getting better. 4. Hypoalbuminemia. 5. Mild hyperkalemia. Limit potassium intake. 6. Anemia. Plan is to remove the dialysis catheter and discharge him home. The patient wants to go home and advised to follow up with Dr. Fleming in 3 to 5 days. We will follow. Job ID: [id number]
[2018-11-30 12:31] VITALS: BP 161/91; TEMP 98
--- NOTE | 2018-12-01 10:50 | DIS ---
DATE OF ADMISSION: 11/21/2018 DATE OF DISCHARGE: 11/30/2018 RESIDENT: Tracy Berkowitz MD ADMITTING ATTENDING: Tammy Melendrez MD DISCHARGE ATTENDING: Navdeep Pérez MD CONSULTS: 1. Nephrology, Oli Fleming MD. 2. General Surgery, Vance Quijano MD. PROCEDURES PERFORMED: 1. Right groin Trialysis catheter placement on 11/21/2018. 2. Right IJ cuffed tunneled hemodialysis catheter placement on 11/21/2018. 3. Chest x-ray on 11/21/2018, which noted a right IJ dialysis catheter seen with its tip at the atrial caval junction. 4. Renal ultrasound on 11/22/2018, which was unremarkable. PRIMARY DIAGNOSES: 1. Acute renal failure secondary to rhabdomyolysis. 2. Rhabdomyolysis secondary to methamphetamine use. 3. Hypertension. SECONDARY DIAGNOSIS: History of methamphetamine use. DISCHARGE MEDICATIONS: 1. Protonix 40 mg p.o. daily. 2. Tums 1000 mg p.o. q.4 hours p.r.n. 3. Acetaminophen 1000 mg p.o. q.6 hours p.r.n. 4. Coreg 12.5 mg p.o. b.i.d. 5. Melatonin 9 mg p.o. at bedtime p.r.n. 6. Simethicone 80 mg p.o. at bedtime p.r.n. DISCONTINUED MEDICATIONS: None. HOSPITAL COURSE: The patient is a 38-year-old gentleman with a past medical history significant for IV meth use, who presented to the emergency department with a chief complaint of 2-day history of muscle cramps with associated weakness and lower back pain. 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 On presentation to the emergency department, he was slightly tachycardic with a heart rate of 105. Other vitals are within normal limits. Lab work was significant for an elevation with WBC of 17.3. An ABG with pH 7.34, pCO2 of 30.8, and PO2 of 104.7. CK level was greater than 40,000. BUN and creatinine of 82 and 7.27. AST and ALT were also elevated at 1858 and 737 respectively. His CK-MB and troponin I were both initially elevated, but downtrend over the course of his hospital stay. The patient was therefore determined to have rhabdomyolysis, likely secondary to his meth use in conjunction with poor p.o. intake over the last several days and was given 2 L of normal saline before being admitted to the floor for continued aggressive IV fluid hydration and pain control overnight. The following morning, the patient's renal function was noted to be unchanged from admission and his CK level remained greater than 40,000. In addition, his potassium was slightly increased from 4.4 to 5.0 and therefore, Nephrology was consulted as the patient was in a state of acute renal failure and would likely need hemodialysis for any prospect of return of normal renal function. Therefore, Dr. Oli Fleming was consulted to come and evaluate the patient, and recommended immediate hemodialysis. Dr. Quijano placed a temporary access Trialysis catheter in the patient's right groin later that morning; however, the access site was unable to be used, so a right IJ tunneled catheter was placed later that evening and the patient underwent hemodialysis. His renal function was closely monitored for the duration of his hospital stay and he underwent several more hemodialysis sessions up until about 3 days prior to his date of discharge during which time, his renal function slowly improved over the next several days. By the date of discharge, his BUN and creatinine were down to 68 and 3.28. His right IJ was removed and he was instructed to follow up with Nephrology within 3 to 5 days of discharge for continued monitoring of his renal function. Regarding his rhabdomyolysis by day 6 of hospitalization, his DKA downtrended significantly to a level of 879 and was therefore, no longer trended for the remainder of his hospital stay. Regarding the patient's hypertension, his initial blood pressures were in the prehypertensive range but over the course of his hospitalization, he had several documented elevated blood pressures requiring him to be started on one antihypertensive agent. He was therefore discharged on Coreg 12.5 mg b.i.d. and instructed to follow up with [facility], as well as Nephrology for continued titration of this medication as needed. Regarding his methamphetamine use, the patient was counseled extensively on his need to cease all methamphetamine use and was provided with information on rehabilitation centers in support groups during his hospital stay. DISPOSITION: Stable. DISCHARGE INSTRUCTIONS: Location: Home. Diet: Renal, high-protein, low-potassium diet. Activity: As tolerated. No restrictions. Followup: The patient was instructed to follow up with Nephrology, Dr. Oli Fleming within 3 days of discharge, and [facility] within 1 week of discharge. Job ID: [id number]
--- NOTE | 2018-12-02 07:36 | PDOC.OP ---
Operative Note - Operative Note Operative Note: PROCEDURE: Removal of tunneled hemodialysis catheter SURGEON: Tami Christian M.D. DATE: 11/30/2018 PREOPERATIVE DIAGNOSIS: Resolved renal failure POSTOPERATIVE DIAGNOSIS: Resolved renal failure HISTORY: Patient admitted with rhabdomyolysis and acute renal failure. Tunneled hemodialysis catheter was placed by Dr. Quijano. He has not required hemodialysis in several days and his maid housekeeper has requested removal of the tunneled dialysis catheter. PROCEDURE IN DETAIL: After informed consent was obtained, the patient's neck and chest were prepped with ChloraPrep. Local anesthesia was infused the skin and subcutaneous tissue surrounding the external cuff. This was dissected free of the surrounding subcutaneous tissues and the catheter removed during exhalation. Pressure was held at the exit site for several minutes and a sterile gauze and Tegaderm dressing was placed. The catheter was intact to examination was discarded. No complications. Estimated blood loss minimal.
== END 2018-11-30 12:31 | disposition home or self-care (01) | DRG 674 ==
LOC: ERS 23:40 → 2NO 11-21 05:20 → T4-B 11-23 12:37
PROVIDERS: ADMIT Family Medicine; ATTEND Family Medicine
PROC: 06H033Z Insertion of Infusion Device into Inferior Vena Cava, Percutaneous Approach (ICD-10-PCS; principal; 2018-11-21)
PROC: 0JH63XZ Insertion of Tunneled Vascular Access Device into Chest Subcutaneous Tissue and Fascia, Percutaneous Approach (ICD-10-PCS; 2018-11-21)
PROC: 02HV33Z Insertion of Infusion Device into Superior Vena Cava, Percutaneous Approach (ICD-10-PCS; 2018-11-21)
PROC: B518YZA Fluoroscopy of Superior Vena Cava using Other Contrast, Guidance (ICD-10-PCS; 2018-11-21)
PROC: 5A1D70Z Performance of Urinary Filtration, Intermittent, Less than 6 Hours Per Day (ICD-10-PCS; 2018-11-21)
DX: N17.9 Acute kidney failure, unspecified (principal); M62.82 Rhabdomyolysis; Z68.41 Body mass index [BMI] 40.0-44.9, adult; E87.2 Acidosis; K21.9 Gastro-esophageal reflux disease without esophagitis; F15.10 Other stimulant abuse, uncomplicated; R80.9 Proteinuria, unspecified; D63.1 Anemia in chronic kidney disease; E66.9 Obesity, unspecified; E87.5 Hyperkalemia; I12.9 Hypertensive chronic kidney disease with stage 1 through stage 4 chronic kidney disease, or unspecified chronic kidney disease; N18.4 Chronic kidney disease, stage 4 (severe)
CPT/HCPCS: 36415; 36416; 71045; 76770; 80053; 80306; 81001; 82550; 82553; 82805; 83690; 83735; 83874; 83880; 84484; 85025; 86704; 86706; 86780; 86803; 87340; 87389; 87522; 90471; 90732; 90935; 93005; 93010; 93970; 96360; 96361; C1752; C1769; G0009; G0257; G0365; J0670; J0690; J1100; J1642; J1644; J2001; J2405; J2704; J3010